=== PATIENT | female | born 1950 | race Caucasian/White ===

== ENCOUNTER 2025-04-30 15:18 | Outpatient (RCR) | payer OTHER, SELFPAY | END 2025-04-30 23:59 | disposition home or self-care (01) | LOC: RPT 15:18 | PROVIDERS: ATTENDING PHYSICIAN Internal Medicine Medical Oncology; FAMILY PHYSICIAN Nurse Practitioner Primary Care | DX: I89.0 Lymphedema, not elsewhere classified (principal); C73 Malignant neoplasm of thyroid gland; R53.0 Neoplastic (malignant) related fatigue | CPT/HCPCS: 97163; 97530 ==

== ENCOUNTER 2025-05-04 14:27 | Inpatient (IN) | payer OTHER, SELFPAY ==
[2025-05-04] VITALS (11 sets, daily range): BP systolic 90–122; BP diastolic 42–81; BMI 24.6
[2025-05-04 10:14] LABS: Hematocrit 23.2 % (37.0-47.0); Hemoglobin 7.5 g/dL (12.0-16.0); Mean Corp Hgb Conc. 32.3 g/dL (33.0-37.0); Mean Corpuscular Volume 78.6 fL (81.0-99.0); Nucleated Red Blood Cells % 0 %; Platelet Count 274 10^3/uL (130-400); Red Cell Dist. Width 17.9 % (11.5-14.5)
[2025-05-04 10:19] LABS: Urine Character Clear (Clear)
--- NOTE | 2025-05-04 10:31 | ED.GENMED ---
History of Present Illness
General
Chief Complaint: Change in Mental Status
Source: patient
Exam Limitations: altered mental status
Time Seen by Provider: 05/04/25 10:25
Nursing documentation reviewed up to this point in time: agreed with
History of Present Illness
History of Present Illness:
74-year-old female painless metastatic bone cancer presents with fever missed her dose of p.o. meds, has shingles on her back, hypotension had fluids and fentanyl by EMS lethargic here not offering much history does have some redness and warmth of
her left lower extremity
Nursing notes reviewed she has metastatic thyroid cancer
Past History
Past History
ED Past Medical History: Cancer, HTN, Hypothyroidism, Psychiatric and Other (Pulmonary emboli)
ED Past Surgical History: Orthopedic and Other (Thyroidectomy )
Social History
Tobacco: Non-smoker
Alcohol: None
Drug: None
Personal:
Living: with family
Phy Exam
Physical Exam
Physical Exam:
Physical Exam
General: Febrile chronically ill female
Neck: Dry
Heart: Tachycardic
Lungs: no acute respiratory distress. clear bilaterally
Abdomen: Distended mild diffuse tenderness
Neuro: Globally weak
Skin: no rash
Psychiatric: Cooperative
Extremities: Left greater than right lower extremity swelling warmth of the lower extremity
Sepsis
Sepsis Screening
Sepsis Assessment: Sepsis
Sepsis Screen
Sepsis Screen: Sepsis
Date: 05/07/25
Time: 05:56
Course
Orders/Labs/Results
Orders:
Orders
05/04/25 Lunch
Cholesterol Lowering
At Your Request: Non-Participating
Does patient need a safe tray?: No
Cholesterol Lowering: Sodium, 2 Gram
05/04/25 10:01
Electrocardiogram (*1) Urgent
Reason for Study: Fatigue / Weakness
EKG- Treatment ONCE
05/04/25 10:02
Comprehensive Metabolic Panel Urgent
Magnesium Urgent
Blood Culture Urgent
TAMRA Source: Blood/Venous
Specimen Description:
Date Specimen was Collected: 05/04/25
Time Specimen was Collected: 10:01
05/04/25 10:03
Complete Blood Count/With Diff Urgent
Lactic Acid Urgent
Urinalysis Reflex To Culture Urgent
Date Specimen was Collected: 05/04/25
Time Specimen was Collected: 10:01
Urine Microscopic Reflex Cult Urgent
Urine Culture Urgent
TAMRA Source: U
Specimen Description:
Date Specimen was Collected: 05/04/25
Time Specimen was Collected: 10:01
05/04/25 10:30
0.9% Sodium Chloride 1000 ml [Nss] 1,000 ml IV BOLUS
Cefepime HCl [Maxipime] 1,000 mg IV NOW STA
CR Chest Portable - 1 View Urgent
Comment:
Reason For Exam: fever
Reason Study Needs to be Portable: Patient Unstable
05/04/25 11:24
0.9% Sodium Chloride 1000 ml [Nss] 1,000 ml IV BOLUS
05/04/25 12:42
Code Status As Directed
Resuscitation Status: Do not resuscitate
Reached after discussion with pt or family/Healthcare POA: Yes
05/04/25 12:43
Activity As Directed
Activity Level: Out of Bed-Early Mobility
DNR Bracelet Application ONCE
Notify MD As Directed
Notify physician if: Bridge Admission orders placed.
Notify attending physician:
-- upon arrival to unit
OR
-- when patient is identified as an ED hold
Vital Signs As Directed
Frequency: Per unit guidelines
O2 Therapy [RESP] Routine
Titrate/Wean O2 to maintain O2 sat greater than (%): 92
05/04/25 12:44
HYDROmorphone [Dilaudid] 0.5 mg IV Q4HPRN PRN
05/04/25 13:00
Admit Patient As Directed
Co-Sign Provider:
Level of Care: Inpatient admission
Assign to:: Medical/Surgical
Physician / Group: Hospitalist
Diagnosis: Sepsis
Patient Condition: Good
Reason for Hospitalization: Sepsis
Expected length of stay greater than two midnights?: Yes
ELOS- Estimated Length of Stay in days: 3
I certify the patient meets the requirements for IP care: Yes
Notify MD As Directed
Notify physician if: Bridge Admission orders placed.
Notify attending physician:
-- upon arrival to unit
OR
-- when patient is identified as an ED hold
O2 Therapy [RESP] Routine
Titrate/Wean O2 to maintain O2 sat greater than (%): 92
05/04/25 13:02
PRN Pain Medication Management As Directed
May give lesser potent ordered pain med per pt: Yes
preference::
Protocol:: Medication orders for pain may be administered in a
manner that supports deferring to patient preference
when the pt is:
- Requesting an ordered lesser potent pain medication.
Least to most potent pain medications are defined
as: acetaminophen < NSAID < tramadol < opioids
(morphine, oxycodone, hydromorphone).
- Requesting a lesser dose of the same medication IF
ORDERED.
- Requesting a less intrusive route of administration
if both routes are prescribed by the provider (PO <
IV).
05/04/25 13:03
Pneumatic Compression Sleeves As Directed
Type: Knee high
DX Deep Vein Thrombosis Video Routine
Abnormal Lab Results
05/04/25 05/04/25
10:02 10:03
WBC 4.5 L 10^3/uL
(4.8-10.8)
RBC 2.95 L 10^6/uL
(4.20-5.40)
Hgb 7.5 L g/dL
(12.0-16.0)
Hct 23.2 L %
(37.0-47.0)
MCV 78.6 L fL
(81.0-99.0)
MCH 25.4 L pg
(27.0-31.0)
MCHC 32.3 L g/dL
(33.0-37.0)
RDW 17.9 H %
(11.5-14.5)
Absolute Lymphs (auto) 0.1 L 10^3/uL
(1.2-3.4)
Neutrophils % 92.5 H %
(42.2-75.2)
Lymphocytes % 2.0 L %
(20.5-51.1)
Glucose 106 H mg/dl
(70-99)
Calcium 7.4 L mg/dl
(8.4-10.2)
Total Protein 5.1 L g/dl
(6.3-8.2)
Albumin 2.6 L g/dl
(3.5-5.0)
Urine Nitrite (Reflex) Positive A
(Negative)
Leukocyte Esterase Rfl 1+ A
(Negative)
Urine Bacteria (Reflex) Many A
(Negative)
Urine Albumin (Reflex) 2+ A
(Neg - Trace)
05/04/25 10:03
05/04/25 10:02
Vital Signs
Initial and Last Documented VS:
Initial Vital Signs
Pulse Resp Pulse Ox
104 14 97
05/04/25 09:55 05/04/25 09:55 05/04/25 09:55
Last Documented Vital Signs
Temp Pulse Resp BP Pulse Ox
98.0 F 75 18 130/69 99
05/06/25 23:25 07/03/25 23:25 05/06/25 23:25 05/06/25 23:25 05/06/25 23:25
MDM/Problems Addressed
Differential Diagnosis Includes:
Sepsis bacteremia pneumonia UTI drug fever cancer fever
MDM/Problems Addressed:
Fever pain
Chronic conditions affecting care: Cancer
Acute Exacerbation and/or Progression of Chronic Illness: Cancer
*Radiology
Radiology exam reviewed: radiology read reviewed
*Pulse Oximetry
SaO2: 95
Oxygen Mode of Delivery: Room air
Patient hypoxic: no
*Critical Care Note
Total Time (30-74mins, 75-104mins- exclusive of procedures): 30
ED Attending Note
-
Portions of this chart may have been created with voice recognition software.� Occasional wrong word or��sound alike� substitutions may have occurred due to the inherent limitations of voice recognition software.
Discharge Plan
Departure
Patient Disposition: Admit
Date of Disposition: 05/04/25
Time of Disposition: 11:38
Admit to: IMU
Presentation/result/management discussed w/ accepting MD/DO: Hospitalist
Patient with high blood pressure during this ER visit?: No
Condition: Fair
Covid-19: Not Applicable
Discharge Problem:
Bacteremia
Interventions
Interventions:
*Risk Screen - Suicide Last Done: 05/04/25 10:09
*General Assessment Last Done: 05/04/25 10:09
*Neglect/Abuse Screening Last Done: 05/04/25 10:09
*ED- Fall Risk Assessment Last Done: 05/04/25 10:09
*ED COVID-19 Vaccine History Last Done: 05/04/25 10:09
*Nursing Disposition Last Done: 05/04/25 14:54
ED- Pulmonary Assessment Last Done: 05/04/25 10:09
ED-Psychological Assessment Last Done: 05/04/25 10:09
ED- Neurological Assessment Last Done: 05/04/25 10:09
ED- Cardiac Assessment Last Done: 05/04/25 10:09
ED Swallowing Screen Last Done: 05/04/25 10:09
Discharge Date and Time
Discharge Date/Time: 05/04/25 16:57
[2025-05-04 10:42] LABS: ALT (SGPT) 22 U/L (0-35); AST (SGOT) 24 U/L (14-36); Albumin 2.6 g/dl (3.5-5.0); Alkaline Phosphatase 110 U/L (38-126); Blood Urea Nitrogen 17 mg/dl (7-17); Calcium 7.4 mg/dl (8.4-10.2); Carbon Dioxide 28 mmol/L (22-30); Chloride 105 mmol/L (98-107); Estimated Creatinine Clearance 72 ml/min; Glucose 106 mg/dl (70-99); Magnesium 1.7 mg/dl (1.6-2.3); Potassium 4.5 mmol/L (3.5-5.1); Sodium 136 mmol/L (135-145); Total Protein 5.1 g/dl (6.3-8.2); eGFR > 60.00
[2025-05-04 11:11] LABS: Urine Squamous Cell 16-20 /LPF (Few)
[2025-05-04 11:14] LABS: Urine Red Blood Cell 0-2 /HPF (0-2)
[2025-05-04] MEDS: NSS 1000 IV ×3 (11:39→17:21)
[2025-05-04] MEDS: MAXIPIME 1000 MG IV (11:39)
--- NOTE | 2025-05-04 14:53 | EDRN ---
this RN called the receiving unit and notified them that paper report was going to be tubed up
--- NOTE | 2025-05-04 15:09 | HPS.HSE ---
Addendum entered and electronically signed by Edwardo Sanabria MD 05/04/25 21:39:
Attending Addendum-
I performed a history and physical exam of the patient and discussed his management with the resident. I reviewed the resident's note and agree with the documented findings and plan of care CC/HPI- present to ED from home secondary to CIMS fevers
and intense pain not relieved by chronic pain meds. Patient seen with present. Appears to be in significant pain unabkle to to give full answers. H/O . Deneis urinary sxs cough diarrhea. unable to find position of comfort. Full 12
point ROS reviewed and negative except as documented Exam- vitals reviewed in EMR GEN-mod distress heart RRR no MRG lungs CTA B/L Abd soft NT ND pos BS Ext 2+ pitting edema b/l Neuro AAO x 3 Back skin wound CDI healing no signs of crusting
Plan:
# Sepsis secondary to UTI
- given dose of cefepime in ED
- change to rocephin
- check blood cx, urine cx, and lactate
- give 30ml/kg IVF
-monitor closely
# Chronic Pain from malignancy with opioid tolerance
- cont aggressive pain med regimen oxy q 4 with addition of IV Dilaudid
- PDMP reviewed
- hold methadone for now
- monitor closely
# Bicytopenia (leukopenia, anemia)
- likely due to malignancy
- cont to monitor
- repeat CBC in am
# Met Thyroid Ca
- follows at [facility]
- poor prognosis recent chemo attempt 4 weeks ago and could not tolerate so stopped
- mets to bone
- patient and family wishing to discuss hospice options
- supportive care
- cont levothyroxine
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
-cont valacyclovir
-wound care
# H/O PE- cont eliquis
# Peripheral Neuropathy- cont gabapentin
# Depression/Anxiety - reviewed PDMP cont xanax and duloxetine
# HTN- cont coreg
CODE- DNR verified with POA
DVTp-eliquis
ACP
Patient consented to discuss, was woth POA/, time spent explanation of advance directives, changes in health status, patient�s health care wishes if the patient becomes unable to make health decisions, goals of care, code status, and
prognosis would like to discuss hospice options eventually- 16 minutes
Time spent coordinating care, review of plan of care with resident, personally reviewed previous records in EMR, med rec, labs, radiology, d/w nursing, family total time documented is exclusive of any additional time listed that was spent in advance
care planning discussion -�76 minutes
Original Note:
Family Physician
-
Family Physician: Chapis CHOPRA
Chief Complaint
-
Altered Mental Status
History of Present Illness
Analy is a 74 year old female with stage IV metastatic Thyroid cancer (follows with Dr. Hartman [facility], last chemo was ~14d ago, Cabozantinib, stopped due to side effects) with bone mets to spine, pelvis, and femur, chronic pain, peripheral neuropathy,
chronic bilateral lower extremity lymphedema, iatrogenic hypothyroidism, chronic shingles (active rash since 12/2024, now on chronic Valcyclovir) who was brought in by EMS for concerns of AMS. Her who is her primary critical care physician was
administering her morning medication around 8AM and found that she was unable to verbalize or take her medications so he called EMS. She was given IVF and fentanyl by EMS. She denies any fevers, chills, shortness of breath, abd pain, n/v/d, or
urinary symptoms. Her has been helping her care for her shingles infection which has not resolved, despite Valacyclovir, since it appeared in December of 2024.
In ED she was found to be febrile 103.1F, Leukopenic 4.5, with stable ANC count (4200), lactate wnl, with periodic hypotension 90s/40s. UA + for nitrites/bacteria/LE. Urine Cx pending. Blood Cx drawn. She was given 1 dose of IV Cefepime and is s/p2L
bolus NS.
Medical History
Past Medical History
Past Medical History: Reports Cancer (Stage IV Thyroid Cancer with mets to bone and abdomen) and Hypothyroidism
Additional Past Medical History:
Neuropathy
Past Surgical History: Reports Other
Additional Past Surgical History:
L Hip replacement, Thyroidectomy 2014
Social History
Tobacco: Non-smoker
Alcohol: None
Drug: None
Personal:
Living: With Family
Family History
Family History: Not pertinent
Allergies / Home Medications
Allergies reflects when Allergies were last updated in [facility].
Home Medications with original date entered in [facility]
Allergy/Medication List:
Allergies
Allergy/AdvReac Type Severity Reaction Status Date / Time
morphine Allergy Rash Verified 09/29/23 12:20
Home Medications
acetaminophen 500 mg tablet 500 mg PO Q4H Pain 05/04/25
alprazolam 0.5 mg tablet (Xanax) 1 mg PO HS Mental Health/Anxiety 05/04/25
apixaban 5 mg tablet (Eliquis) 5 mg PO BID Blood Clot Prevention/Tx 05/04/25
calcium carbonate 500 mg PO DAILY Supplement 05/04/25
carvedilol 3.125 mg tablet 3.125 mg PO BID Blood Pressure 05/04/25
cholecalciferol (vitamin D3) 10 mcg (400 unit) capsule 10 mcg PO DAILY Blood Pressure 05/04/25
duloxetine 60 mg capsule,delayed release 60 mg PO DAILY@1200 Mental Health/Anxiety 05/04/25
gabapentin 600 mg tablet 600 mg PO TID Pain 05/04/25
levothyroxine 200 mcg tablet (Synthroid) 200 mcg PO DAILY Thyroid 05/04/25
magnesium hydroxide 400 mg/5 mL oral suspension (Milk of Magnesia) 15 mg PO DAILYPRN PRN constipation 05/04/25
methadone 10 mg tablet 15 mg PO BID 05/04/25
methadone 10 mg tablet 20 mg PO HS 05/04/25
nitrofurantoin macrocrystal 50 mg capsule 50 mg PO DAILY [facility] 05/04/25
ondansetron HCl 8 mg tablet 8 mg PO Q12H N/V 05/04/25
oxycodone 20 mg tablet 20 mg PO Q4H Pain 05/04/25
pantoprazole 40 mg tablet,delayed release 40 mg PO DAILY Gastrointestinal Issue 05/04/25
valacyclovir 1 gram tablet (Valtrex) 1,000 mg PO BID [facility] 05/04/25
Review of Systems
-
History Source: Patient and Family
A 12 point ROS was completed and negative except as noted: Yes
Constitutional: Reports Fatigue and Other (Generalized Pain)
EENT: Reports No Symptoms
Respiratory: Reports No Symptoms
Cardiac: Reports No Symptoms
Abdomen/GI: Reports No Symptoms
: Reports No Symptoms
Musculoskeletal: Reports Joint Pain (Back and Pelvic Pain)
Skin: Reports Rash (Shingles)
Neurological: Reports Other (Peripheral Neuropathy BL LE)
Endocrine: Reports No Symptoms
Hematologic/Lymphatic: Reports No Symptoms
Psych: Reports No Symptoms
Physical Exam
Vital Signs
Vital Signs
Temp Pulse Resp BP Pulse Ox
103.1 F H 92 16 102/48 96
05/04/25 10:09 05/04/25 12:40 05/04/25 12:40 05/04/25 12:40 05/04/25 12:40
Physical Exam
General: Well Developed, Appears in Distress, Pain and Appears Chronically Ill
HEENT: NormoCephalic, Anicteric, Moist mucous membranes, Atraumatic, PERRLA, [place] Conjunctivae, Nose Appears Normal and Ears Appear Normal
Respiratory: Clear; No Wheezes, Rales or Rhonchi
Cardiac: S1/S2 and Regular Rhythm; No Murmur or Rub
Breast: Deferred by me
GI: Normal Bowel Sounds, Tender and Flat
Genito-urinary: Deferred by me
Musculoskeletal: No Clubbing, No Cyanosis, Edema, Left Lower Extremity and Edema, Right Lower Extremity
Skin: Warm, Dry, Rash (Shingles rash on midback) and IV/Catheter Site
Neuro: AO x 3 and Nonfocal/grossly intact
Hematologic/Lymphatic: Other (BL LE Lymphedema)
Psych: Intact Judgment/Insight
Laboratory Results
-
05/04/25 10:03
05/04/25 10:02
Laboratory Results
Lactic Acid 1.0 mmol/L (0.7-2.0) 05/04/25 10:03
Total Bilirubin 0.5 mg/dl (0.2-1.3) 05/04/25 10:02
AST 24 U/L (14-36) 05/04/25 10:02
ALT 22 U/L (0-35) 05/04/25 10:02
Alkaline Phosphatase 110 U/L (38-126) 05/04/25 10:02
Impression/Plan
-
74 year old female with a PMHX significant for stage IV metastatic Thyroid cancer (follows with Dr. Hartman [facility], last chemo was ~14d ago, Cabozantinib, stopped due to side effects) with bone mets to spine, pelvis, and femur, chronic pain, peripheral
neuropathy, chronic bilateral lower extremity lymphedema, iatrogenic hypothyroidism, chronic shingles (active rash since 12/2024, now on chronic Valcyclovir) who was brought in by EMS for concerns of AMS.
#Sepsis, secondary to UTI vs. Soft tissue infection (Shingles Rash)
- Febrile on admission to 103.1, leukopenic, tachycardic, with possible source
- lactate wnl on admission -- will repeat x1
- s/p 2L NS Bolus
- Blood cx drawn, results pending
- CXR wnl
- UA + for LE, Nitrites, bacteria -- reflex to Cx -- results pending
- s/p 1 dose IV Cefazolin -- narrowed to Ceftriaxone; await cultures
- IVF 80cc/hr maintenance
#Stage IV Metastatic Thyroid cancer
#Bone Mets
#Chronic Cancer pain
- c/w home dose Oxycodone 20mg q4
- c/w home bowel regimen for opioid induced constipation
- holding methadone
- IV Dilaudid 0.5mg q4h prn for breakthrough pain
#Anemia, likely of chronic disease
- hgb 7.5 on admission, last Hgb in our records from 2022
- no h/o bloody stools, hematuria, bruising
- check cbc in AM
#Chronic Shingles rash
- active shingles rash since December 2024
- unable to achieve full remission with Valacyclovir 10d course
- has been on daily Valacyclovir x3 weeks -- will continue
#Hypertension?
- dx of hypertension in records and home medication Carvedilol
- Patient hypotensive periodically since admission -- holding carvedilol
#H/o PE
#Hypercoagulable State (Active Stage IV Cancer)
- continue Eliquis 5mg BID
#Peripheral Neuropathy
- c/w gabapentin 600mg TID
#Iatrogenic Hypothyroidism
#s/p thyroidectomy
- c/w home dose levothyroxine 200mcg
#Anxiety
- c/w home Xanax 1mg prn/Cymbalta 60mg
GI Ppx - Pantoprazole 40mg qd
DVT PPx - pt on Eliquis
Code Status - DNR
--- NOTE | 2025-05-04 15:17 | CM ---
CM reviewed chart and met with at bedside in ED. Pt lives with , multistory home, has ramps to enter, first floor setup, has Stair[place], full BA second floor. Has adjustable beds on both first and second floor.
Needs assistance at baseline, ambulates with RW but very unsteady per her .
Started service with [facility] yesterday. HX VN and SNF
PCP: [facility] Villanue[facility] for [facility]
Pharmacy: [facility] in [place]
They are considering transition to hospice, I gave him Medicare.gov list of local hospices. He will discuss with their children this weekend.
Discharge plan: Pending ongoing medical evaluation, anticipate home with services, watch for needs
[2025-05-04] MEDS: DILAUDID 0.5 MG IV (17:21)
[2025-05-04] MEDS: ROCEPHIN 1000 MG IV (17:22)
[2025-05-04] MEDS: STERILE WATER FOR INJECTION 10 ML IV (17:22)
[2025-05-04] MEDS: TYLENOL 500 MG PO ×2 (17:30→21:56)
[2025-05-04] MEDS: ELIQUIS 5 MG PO (20:03)
[2025-05-04] MEDS: VALTREX 1000 MG PO (20:05)
[2025-05-04] MEDS: ROXICODONE 20 MG PO (20:05)
[2025-05-04] MEDS: ZOFRAN 8 MG PO (20:05)
[2025-05-04] MEDS: NEURONTIN 600 MG PO (21:56)
[2025-05-04] MEDS: XANAX 1 MG PO (21:57)
[2025-05-05] VITALS (14 sets, daily range): BP systolic 72–176; BP diastolic 30–88; BMI 24.6
[2025-05-05] MEDS: ROXICODONE PO ×2 (00:02→23:10)
[2025-05-05] MEDS: ROXICODONE 20 MG PO ×5 (03:18→20:15)
[2025-05-05] MEDS: TYLENOL 500 MG PO ×5 (03:18→17:44)
[2025-05-05] MEDS: SYNTHROID 200 MCG PO (05:56)
[2025-05-05 06:05] LABS: Hematocrit 20.8 % (37.0-47.0); Hemoglobin 6.7 g/dL (12.0-16.0); Mean Corp Hgb Conc. 32.2 g/dL (33.0-37.0); Mean Corpuscular Volume 79.1 fL (81.0-99.0); Platelet Count 257 10^3/uL (130-400); Red Cell Dist. Width 18.4 % (11.5-14.5)
[2025-05-05 06:26] LABS: Blood Urea Nitrogen 18 mg/dl (7-17); Calcium 6.6 mg/dl (8.4-10.2); Carbon Dioxide 23 mmol/L (22-30); Chloride 107 mmol/L (98-107); Estimated Creatinine Clearance 62 ml/min; Glucose 102 mg/dl (70-99); Potassium 4.4 mmol/L (3.5-5.1); Sodium 135 mmol/L (135-145); eGFR > 60.00
--- NOTE | 2025-05-05 06:33 | W.PN.UPDATE ---
Update Note
Progress Note Update
0630 HH this am 6.6 (from 7.5)
Consent obtained from , Berry @ [phone]
type and screen ordered.
will transfuse 1 unit prbc
[2025-05-05] MEDS: CALCIUM GLUCONATE 100 IV (06:59)
--- NOTE | 2025-05-05 07:45 | W.PN.HOSP.TC ---
Addendum entered and electronically signed by Edwardo Sanabria MD 05/05/25 22:49:
Attending Addendum-I saw and evaluated the patient. I reviewed the resident�s note and agree with findings and plan as documented in the resident�s note. Sub: was found to be anemic and transfused ON. complains of pain all over. tearful. denies
urainry complaints. Febrile overnight. 'I just want to be comfortbale i have cancer bone pain!' Full 12 point ROS reviewed and negative except as documented Exam- vitals reviewed in EMR GEN-mod distress heart RRR no MRG lungs CTA B/L Abd soft NT ND
pos BS Ext 2+ pitting edema b/l Neuro AAO x 3 Back skin wound CDI healing no signs of crusting
Plan:
# Sepsis secondary to UTI
-now with pos blood cx x 1- pseudomonas
-urine cx- pos for pseudomonas.
-given dose of cefepime in ED
-change from rocephin back to cefepime
- repeat blood cx
- c/s ID for eval
-monitor closely
# Chronic Pain from malignancy with opioid tolerance
- cont aggressive pain med regimen oxy q 4 with increase of prn IV Dilaudid
- PDMP reviewed
- restart methadone at home dose
- monitor closely
# Bicytopenia (leukopenia, anemia)
# Acute on chronic anemia
- likely due to malignancy
- no signs of acute blood loss
- transfused 1 u PRBC 05/05
- cont to monitor
- repeat CBC in am
# Met Thyroid Ca
- follows at [facility]
- poor prognosis recent chemo attempt 4 weeks ago and could not tolerate so stopped
- mets to bone
- patient and family wishing to discuss hospice options
- supportive care
- cont levothyroxine
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
-cont valacyclovir
-wound care
# H/O PE- cont eliquis
# Peripheral Neuropathy- cont gabapentin
# Depression/Anxiety - reviewed PDMP cont xanax and duloxetine
# HTN- cont coreg
CODE- DNR verified with POA
DVTp-eliquis
Time spent coordinating care, review of plan of care with resident, personally reviewed records in EMR, med rec, consults, notes, labs, radiology, d/w nursing and POA� 52 mins
Original Note:
Today's Communication/Plan
-
Continue with pain control
Observe blood/Urine cultures
ID Consult
Heme stool/recheck H&H
Assessment / Plan
Assessment / Plan
74 year old female with a PMHX significant for stage IV metastatic Thyroid cancer (follows with Dr. Hartman [facility], last chemo was ~14d ago, Cabozantinib, stopped due to side effects) with bone mets to spine, pelvis, and femur, chronic pain, peripheral
neuropathy, chronic bilateral lower extremity lymphedema, iatrogenic hypothyroidism, chronic shingles (active rash since 12/2024, now on chronic Valcyclovir) who was brought in by EMS for concerns of AMS.
#Sepsis, likely secondary to UTI vs. Soft tissue infection (Shingles Rash)
- Febrile on admission to 103.1, leukopenic, tachycardic, with possible source
- lactate wnl on admission -- will repeat x1
- s/p 2L NS Bolus
- Blood cx drawn, preliminary report showing GN bacteremia
- CXR wnl
- UA + for LE, Nitrites, bacteria -- reflex to Cx -- results pending
- s/p 1 dose IV Cefazolin -- narrowed to Ceftriaxone; await cultures
- IVF 80cc/hr maintenance
- ID consult for GNB in the setting of active cancer
#Acute on chronic Anemia
- hgb 7.5 on admission, last Hgb in our records from 2022
- no h/o bloody stools, hematuria, bruising
- overnight 05/05/2025 had hgb drop to 6.7, transfused x1 unit.
- Check retic count/stool heme
- More likely dilutional given no hx to suggest acute blood loss, will repeat H&H and c/t monitor.
#Stage IV Metastatic Thyroid cancer
#Bone Mets
#Chronic Cancer pain
- c/w home dose Oxycodone 20mg q4 (MME 180/d)
- c/w home bowel regimen for opioid induced constipation
- holding methadone (235 MME/d)
- Pain not currently controlled, will increase 1mg Dilaudid IV q4prn for breakthrough and add scheduled 3mg Dilaudid Q4 hr (MME 90)
- Monitor closely for hypotension in the setting of high dose opioids and sepsis
#Chronic Shingles rash
- active shingles rash since December 2024
- unable to achieve full remission with Valacyclovir 10d course
- has been on daily Valacyclovir x3 weeks -- will continue
#Hypertension?
- dx of hypertension in records and home medication Carvedilol
- Patient hypotensive periodically since admission -- holding carvedilol
#H/o PE
#Hypercoagulable State (Active Stage IV Cancer)
- holding Eliquis 05/05 for suspicion of active bleed given hgb drop vs. dilutional anemia. If afternoon H&H stable and heme stool negative, may restart Eliquis presuming no active bleed.
#Peripheral Neuropathy
- c/w gabapentin 600mg TID
#Iatrogenic Hypothyroidism
#s/p thyroidectomy
- c/w home dose levothyroxine 200mcg
#Anxiety
- c/w home Xanax 1mg prn/Cymbalta 60mg
GI Ppx - Pantoprazole 40mg qd
DVT PPx - pt on Eliquis
Code Status - DNR
Anticipated Discharge: 24 - 48 hours
Subjective/Interval History
-
Date of Service: May 05, 2025
Cancer pain and shingles pain are still significant. She has no other acute complaints in so far as fevers, chills, abd pain, urinary sx, chest pain, SOB.
Objective Data
-
Labs:
Laboratory Results
05/05/25
05:27
WBC 8.9
Hgb 6.7 L*
Hct 20.8 L*
Plt Count 257
Sodium 135
Potassium 4.4
Chloride 107
Carbon Dioxide 23
BUN 18 H
Creatinine 0.7
Glucose 102 H
Calcium 6.6 L*
Vital Signs:
Vital Signs
Temp Pulse Resp BP Pulse Ox
97.6 F 76 18 111/48 94
05/05/25 03:14 05/05/25 03:14 05/05/25 03:14 05/05/25 03:14 05/05/25 03:14
I&O
05/04/25 05/05/25 05/06/25
06:59 06:59 06:59
Intake Total 120 / 120
Balance 120 / 120
Review of Systems
-
History Source: Patient
All other systems: Reviewed and negative
Constitutional: Reports Other (Pain)
EENT: Reports No Symptoms Reported
Respiratory: Reports No Symptoms
Cardiac: Reports No Symptoms
Abdomen/GI: Reports No Symptoms
Breast: Reports No Symptoms
Genitourinary: Reports No Symptoms
Musculoskeletal: Reports No Symptoms
Skin: Reports Rash (Shingles rash)
Neuro: Reports No Symptoms
Endocrine: Reports No Symptoms
Hematologic / Lymphatic: Reports No Symptoms
Physical Exam
-
General: Pain and Appears Chronically Ill
HEENT: Normocephalic, Atraumatic, Moist Mucous Membranes, Anicteric, [place] Conjunctivae, No Ptosis, PERRLA, Nose Appears Normal and Ears Appear Normal
Respiratory: Clear to Auscultation and Non Labored Respirations; Negative Wheezes, Rales or Rhonchi
Cardiac: Regular Rhythm and S1/S2; Negative Murmur or Rub
Breast: Deferred by me
GI: Normal Bowel Sounds
Genito-urinary: Deferred by me
Musculoskeletal: No Clubbing, No Cyanosis and No Edema
Skin: Warm and Dry
Neuro: AO x 3
[2025-05-05] MEDS: DESENEX/MITRAZOL/ZEASORB 1 APPLIC TOPICAL ×2 (08:07→20:17)
[2025-05-05] MEDS: ELIQUIS 5 MG PO (08:08)
[2025-05-05] MEDS: NEURONTIN 600 MG PO ×2 (08:09→16:01)
[2025-05-05] MEDS: VALTREX 1000 MG PO ×2 (08:09→20:18)
[2025-05-05] MEDS: ZOFRAN 8 MG PO ×2 (08:09→20:18)
[2025-05-05] MEDS: MACRODANTIN 50 MG PO (08:09)
[2025-05-05] MEDS: PROTONIX 40 MG PO (08:09)
[2025-05-05] MEDS: VITAMIN D3 (cholecalciferol) 10 MCG PO (08:09)
[2025-05-05] MEDS: OSCAL CAL 500 500 MG PO (08:09)
[2025-05-05 08:39] LABS: Reticulocyte Count 0.6 % (0.4-2.8)
[2025-05-05] MEDS: DILAUDID 1 MG IV (09:59)
[2025-05-05 10:56] LABS: LDH 222 U/L (120-246)
[2025-05-05] MEDS: STERILE WATER FOR INJECTION 10 ML IV ×3 (11:25→23:09)
[2025-05-05] MEDS: CYMBALTA DELAYED RELEASE 60 MG PO (11:25)
[2025-05-05] MEDS: MAXIPIME 1000 MG IV ×3 (11:25→23:09)
--- NOTE | 2025-05-05 13:59 | WOUNDNOTE ---
SACRUM/COCCYX/BUTTOCKS
--- NOTE | 2025-05-05 14:15 | WOUNDNOTE ---
[facility] RN note: Patient admitted with sepsis, UTI.
See H&P for complete history.
PMH: Stage IV metastatic thyroid cancer with bone mets, shingles since 12/29
Wound Location and type/assessment: Patient admitted with DTI to right heel. The wound is ecchymotic and appears to be covered by blistered skin. This junior underwriter spoke to about evolving nature of DTI. unsure about when wound occurred.
Shingles rash with scant amount of drainage on old dressing. Patient had been medicated for pain prior to the time of assessment. She denied pain at Shingles site but did complain of what she called ' cancer pain' in her legs. Some MASD noted to
sacrum and buttocks.
Pressure redistribution devices in place: Static air overlay added to bed by this junior underwriter and RN, Rashaun. Turning schedule added to care plan. Patient and did not think patient could tolerate fiber filled boots, so heels were off-loaded
with pillows under calves.
Plan: No-sting barrier and silicone foam to heel, assess daily. Barrier ointment with incontinence care. Patient has several comorbidities including metastatic thyroid cancer. Wounds may worsen and new wounds may develop, even with optimal care. RN
Rachel given update. Will follow during in-patient stay. Orders confirmed with hospitalist.
[2025-05-05] MEDS: DOLOPHINE 10 MG PO (14:32)
[2025-05-05] MEDS: NSS 1000 IV (14:33)
[2025-05-05] MEDS: DOLOPHINE 5 MG PO (14:40)
--- NOTE | 2025-05-05 16:17 | CON.ID ---
Consultation
-
Date/Time Consultation Requested: 05/05/2025 0829
Date/Time Consultation Performed: 05/05/2025 1500
Requesting Provider: Dr. Orta
Performing Provider: Dr. Singh
Reason for Consultation: Bacteremia
Chief Complaint / Past History
History of Present Illness
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 History is obtained from chart review, along with patient
interview. Additional history was obtained from the patient's who is at the bedside.
The patient was initially diagnosed in 2020 and underwent approximately 2-1/2 rounds of chemotherapy. She additionally underwent 2 rounds of I-131 treatment. She additionally has had localized XRT to noted metastatic lesions. She underwent a
laminectomy last fall, and has also had a donavon placed in her femur to avert a pathologic fracture.
She recalls that she had had several episodes of urinary tract infections in late 2023 and she was evaluated by Urology and placed on suppressive antibiotics (Macrodantin). She notes on her last CAT scan she had progression of disease, and had also
developed hydronephrosis. She has been evaluated by urology at [facility] for possible stenting. She evidently started new chemotherapy approximately 1 month ago, but has elected to stop it for now.
Her reports over the past few days she has had increasing continence, and has had increasing lethargy. She was doing well until yesterday a.m. when she became somewhat nonresponsive, and at that point in time EMS was called and she was
brought emergently to the hospital. Blood cultures obtained at the time of admission are now positive for Pseudomonas, and Infectious Diseases is asked to comment upon further antimicrobial therapy.
At present, she notes ongoing generalized weakness, and she reports pain 'everywhere'. Family additionally reports that they are contemplating an eventual transition to hospice.
And other additional history, the patient reports she had a history of shingles in the mid thoracic region approximately 4�6 months ago. The area initially improved on Valtrex, but only to return again later. The has been caring for the
area with hydrogen peroxide.
Past History
Additional Past Medical History:
Metastatic follicular thyroid cancer s/p several rounds of chemotherapy.
Hypothyroidism
Neuropathy
Additional Past Surgical History:
Thyroidectomy
Left hip replacement
Femoral donavon placement
Allergy History:
morphine Allergy (Verified 09/29/23 12:20)
Rash
Medications Reviewed: Yes
Current Antibiotics:
Cefepime 1 g IV every 8 hours
Social History
Tobacco: Non-Smoker
Alcohol: None
Drug: None
Personal:
Living: With Family
Review of Systems
Vital Signs
Temp Pulse Resp BP Pulse Ox
99.8 F 97 14 176/88 95
05/05/25 16:00 05/05/25 15:51 05/05/25 15:51 05/05/25 15:51 05/05/25 15:51
Physical Exam
Physical Exam
Constitutional: Acutely Ill, Chronically Ill, Non-toxic and Cachetic
Eyes: No Conjunctival Hemorrhage and Sclera Anicteric
Cardiovascular: S1/S2; Negative S3/S4
Pulmonary: Clear; Negative Wheezes or Rales
Gastrointestinal: Non Tender and Non Distended
Wound: Other (Back wounds with appearance of unroofed prior vesicles, but appear chronic in nature. No purulence. No periwound erythema)
Neurological: Awake
Lab / Diagnostic Study Results
05/05/25 05:27
Abs Immat Gran (auto) 0.1 10^3/uL (0-0.05) H 05/05/25 05:27
Absolute Neuts (auto) 8.0 10^3/uL (1.4-6.5) H 05/05/25 05:27
Absolute Lymphs (auto) 0.3 10^3/uL (1.2-3.4) L 05/05/25 05:27
Absolute Monos (auto) 0.6 10^3/uL (0.1-0.6) 05/05/25 05:27
Absolute Basos (auto) 0.0 10^3/uL (0-0.2) 05/05/25 05:27
Immature Gran % 0.8 % (0-0.5) H 05/05/25 05:27
Neutrophils % 89.5 % (42.2-75.2) H 05/05/25 05:27
Lymphocytes % 2.8 % (20.5-51.1) L 05/05/25 05:27
Monocytes % 6.2 % (1.7-9.3) 05/05/25 05:27
Eosinophils % 0.4 % (0-6) 05/05/25 05:27
Basophils % 0.3 % (0-2) 05/05/25 05:27
Lactic Acid Cancelled 05/05/25 06:00
Ur Squamous Epith Cells 16-20 /LPF (Few) 05/04/25 10:03
Microbiology Results
Micro:
05/04/25 10:03 Urine Culture - Preliminary
Urine Pseudomonas aeruginosa
05/04/25 10:02 Blood Culture - Preliminary
Blood/Venous Pseudomonas aeruginosa
Gram Stain - Preliminary
Assessment / Plan
Pseudomonas bacteremia
Normal white count with left shift
Complicated urinary tract infection
Metastatic follicular thyroid cancer
Hypothyroidism
Recommendations:
Continue with cefepime; increase to 1 g IV every 6 hours.
Follow white count and temperature curve.
Given history of prior hydronephrosis (per ), check renal ultrasound.
Await final culture data to guide further antimicrobial therapy.
[2025-05-05 16:57] LABS: Hematocrit 32.5 % (37.0-47.0); Hemoglobin 10.9 g/dL (12.0-16.0)
--- NOTE | 2025-05-05 19:30 | PTCARENOTE ---
While rounding on patient during shift change, pt noted to have a 103.3 fever. Patient intermittently confused and very drowsy, having trouble following commands. KEYSHA Monteiro notified. IV ibuprofen ordered. Refer to MAR. Plan of care
ongoing.
[2025-05-05] MEDS: CALDOLOR 156 MG IV (20:14)
[2025-05-05] MEDS: NEURONTIN PO (22:58)
[2025-05-05] MEDS: TYLENOL PO (22:58)
[2025-05-05] MEDS: XANAX PO (22:58)
[2025-05-05] MEDS: DOLOPHINE PO (22:58)
--- NOTE | 2025-05-05 23:00 | PTCARENOTE ---
Pt temperature down to 97.8. BP low at 72/30 manually. HR of 88. Pt drowsy, holding oral meds at this time. KEYSHA Monteiro notified. 250 ml bolus ordered. Refer to MAR. Will continue to check BP q15 minutes.
[2025-05-05] MEDS: NSS 250 IV (23:06)
[2025-05-06] VITALS (24 sets, daily range): BP systolic 83–130; BP diastolic 39–79; BMI 26.5
--- NOTE | 2025-05-06 00:15 | PTCARENOTE ---
Pt BP still low in 80s/40s at end of fluid bolus. KEYSHA Monteiro notified. Fluids increased from 80 to 120 ml/hr. Plan of care ongoing.
--- NOTE | 2025-05-06 01:00 | PTCARENOTE ---
Pt BP still 80s/40s. KEYSHA Monteiro notified. Midodrine ordered. Pt arousable and alert enough to take medication. Plan of care ongoing.
[2025-05-06] MEDS: TYLENOL 500 MG PO ×6 (01:15→22:12)
[2025-05-06] MEDS: NSS 1000 IV (01:15)
[2025-05-06] MEDS: ROXICODONE PO ×2 (05:13→22:10)
[2025-05-06] MEDS: SYNTHROID 200 MCG PO (05:16)
[2025-05-06] MEDS: MAXIPIME 1000 MG IV ×4 (05:16→23:08)
[2025-05-06] MEDS: STERILE WATER FOR INJECTION 10 ML IV ×4 (05:16→23:09)
--- NOTE | 2025-05-06 06:10 | W.PN.UPDATE ---
Update Note
Progress Note Update
Pt with fever of 103.3 at the beginning of the shift- packed with ice and given q4h Tylenol and X1 dose of IV Caldolor provided- repeat temp 97.8. BP is now 72/30 HR 88- fluid challenge given and 2200 methadone, gabapentin, Xanax held. Increased IVF
from 80ml/hr to 120ml/hr BPs still soft 80s/40s. HR 60s-70. Pt drowsy but responding appropriately to verbal stimuli. BP still 80s/40s despite fluids- X1 dose of 5mg midodrine added BP 103/52 HR 72�following.Pt with little urine output overnight-
Bladder scanned for 728- order for Bladder scan and straight cath order placed. Pt BP maintaining with fluids- 90s-100s/40s-70s HR- 60s-70s.
--- NOTE | 2025-05-06 06:16 | PTCARENOTE ---
Pt noted to have decreased urine output overnight. Bladder scanned for 728 ml of urine. Pt stated not having an urge to urinate. KEYSHA Monteiro notified. Orders for bladder scan and straight cath protocol initiated. Pt straight cathed
succesfully with an output of 750 ml of dark, rg urine. Plan of care ongoing.
[2025-05-06] MEDS: VALTREX 1000 MG PO ×2 (07:28→22:10)
[2025-05-06] MEDS: DESENEX/MITRAZOL/ZEASORB 1 APPLIC TOPICAL ×2 (07:28→22:14)
[2025-05-06] MEDS: DOLOPHINE 10 MG PO ×2 (07:29→14:06)
[2025-05-06] MEDS: VITAMIN D3 (cholecalciferol) 10 MCG PO (07:29)
[2025-05-06] MEDS: PROTONIX 40 MG PO (07:29)
[2025-05-06] MEDS: OSCAL CAL 500 500 MG PO (07:29)
[2025-05-06] MEDS: NEURONTIN 600 MG PO ×3 (07:29→22:11)
[2025-05-06] MEDS: ROXICODONE 20 MG PO ×3 (07:29→15:48)
[2025-05-06] MEDS: DOLOPHINE 5 MG PO ×2 (07:30→14:07)
[2025-05-06] MEDS: MACRODANTIN 50 MG PO (07:30)
[2025-05-06] MEDS: ZOFRAN 8 MG PO ×2 (07:30→22:11)
--- NOTE | 2025-05-06 08:03 | W.PN.HOSP.TC ---
Addendum entered and electronically signed by Edwardo Sanabria MD 05/06/25 21:01:
Attending Addendum-I saw and evaluated the patient. I reviewed the resident�s note and agree with findings and plan as documented in the resident�s note. Sub: febrile overnight with hypotension- resolved with IVF and anti pyretics. pain much better
controlled this am. seen with family present. 'bone pain is the worst doc!' Full 12 point ROS reviewed and negative except as documented Exam- vitals reviewed in EMR GEN-NAD heart RRR no MRG lungs CTA B/L Abd soft NT ND pos BS Ext 2+ pitting edema
b/l Neuro AAO x 3 Back skin wound CDI healing no signs of crusting
Plan:
# Sepsis secondary to UTI
-now with pos blood cx x 3- likely pseudomonas
-repeat blood cx /
-urine cx- pos for pseudomonas sensi resulted
-given dose of cefepime in ED
-cont cefepime day #3
-appreciate ID input
-monitor closely
# DTI right heel POA
- wound care
# Opioid Use with opioid dependence
- cont aggressive pain med regimen oxy q 4 with prn IV Dilaudid
- PDMP reviewed
- cont home methadone dose
- monitor resp status closely
# Bicytopenia (leukopenia, anemia)
# Acute on chronic anemia
- likely due to malignancy
- no signs of acute blood loss
- transfused 1 u PRBC 05/05
- cont to monitor
- repeat CBC in am
# Met Thyroid Ca
- follows at [facility]
- poor prognosis recent chemo attempt 4 weeks ago and could not tolerate so stopped
- mets to bone
- patient and family wishing to discuss hospice options
- supportive care
- cont levothyroxine
# Hypocalcemia
- from poor nutritional state
- CTM
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
-cont valacyclovir
-wound care
# H/O PE- cont eliquis
# Peripheral Neuropathy- cont gabapentin
# Depression/Anxiety - reviewed PDMP cont xanax and duloxetine
# HTN- cont coreg
CODE- DNR verified with POA
DVTp-eliquis
Dispo Eventual DC home on hospice likely
Time spent coordinating care, review of plan of care with resident, personally reviewed records in EMR, med rec, consults, notes, labs, radiology, d/w nursing ID and children� 51 mins
Original Note:
Today's Communication/Plan
-
Restart Eliquis
Observe cultures
C/w Abx
C/w pain control
Assessment / Plan
Assessment / Plan
74 year old female with a PMHX significant for stage IV metastatic Thyroid cancer (follows with Dr. Hartman [facility] last chemo was ~14d ago, Cabozantinib, stopped due to side effects) with bone mets to spine, pelvis, and femur, chronic pain, peripheral
neuropathy, chronic bilateral lower extremity lymphedema, iatrogenic hypothyroidism, chronic shingles (active rash since 12/2024, now on chronic Valcyclovir) who was brought in by EMS for concerns of AMS.
#Sepsis, likely secondary to UTI vs. Soft tissue infection (Shingles Rash)
- Febrile on admission to 103.1, leukopenic, tachycardic, with possible source
- lactate wnl on admission -- will repeat x1
- CXR wnl
- s/p 2L NS Bolus
- Blood cx (05/04), showing Pseudomonas, awaiting sensitivities
- repeat Blood Cx (05/05) pending
- UA + for LE, Nitrites, bacteria -- reflex to Cx (05/04) -- growing pseudomonas
- c/w Cefepime
- IVF 80cc/hr maintenance
- ID following; appreciate recs
#Acute on chronic Anemia
- hgb 7.5 on admission, last Hgb in our records from 2022
- no h/o bloody stools, hematuria, bruising
- overnight 05/05/2025 had hgb drop to 6.7, transfused x1 unit.
- Retic count normal, heme test not resulted yet
- More likely dilutional, repeat H&H post transfusion 10.7, down to 8.9 this AM with continued fluid administration
#Stage IV Metastatic Thyroid cancer
#Bone Mets
#Chronic Cancer pain
#Chronic Opioid use with dependence
- c/w home dose Oxycodone 20mg q4 (MME 180/d)
- c/w home bowel regimen for opioid induced constipation
- back on home methadone (235 MME/d)
- Pain controlled on 1mg IV Dilaudid for Mod pain; 1.5mg IV Dilaudid for severe pain
- Monitor closely for hypotension in the setting of high dose opioids and sepsis
#Chronic Shingles rash
- active shingles rash since December 2024
- unable to achieve full remission with Valacyclovir 10d course
- has been on daily Valacyclovir x3 weeks -- will continue
#Hypertension?
- dx of hypertension in records and home medication Carvedilol
- Patient hypotensive periodically since admission -- holding carvedilol
#H/o PE
#Hypercoagulable State (Active Stage IV Cancer)
- holding Eliquis 05/05 for suspicion of active bleed given hgb drop vs. dilutional anemia.
- Hgb 8.9 this morning, no active signs of bleeding
- given high risk of clotting due to active cancer and stable hgb will restart Eliquis
#Peripheral Neuropathy
- c/w gabapentin 600mg TID
#Iatrogenic Hypothyroidism
#s/p thyroidectomy
- c/w home dose levothyroxine 200mcg
#Anxiety
- c/w home Xanax 1mg prn/Cymbalta 60mg
#Right Heel DTI - POA, c/w wound care
GI Ppx - Pantoprazole 40mg qd
DVT PPx - pt on Eliquis
Code Status - DNR
Anticipated Discharge: Within 24 hours
Subjective/Interval History
-
Date of Service: May 06, 2025
Feeling better this morning. No subjective fevers, just feeling cold as is usual for her. No chills. Pain much better controlled compared to yesterday.
Objective Data
-
Labs:
Laboratory Results
05/06/25
07:16
WBC Pending
Hgb Pending
Hct Pending
Plt Count Pending
Sodium Pending
Potassium Pending
Chloride Pending
Carbon Dioxide Pending
BUN Pending
Creatinine Pending
Glucose Pending
Calcium Pending
Vital Signs:
Vital Signs
Temp Pulse Resp BP Pulse Ox
97.6 F 61 16 101/51 93
05/06/25 07:26 05/06/25 07:26 05/06/25 07:26 05/06/25 07:26 05/06/25 07:26
I&O
05/05/25 05/06/25 05/07/25
06:59 06:59 06:59
Intake Total 120 / 120 1530 / 1530
Output Total 750 / 750
Balance 120 / 120 780 / 780
Review of Systems
-
History Source: Patient
All other systems: Reviewed and negative
Constitutional: Reports Chills
EENT: Reports No Symptoms Reported
Respiratory: Reports No Symptoms
Cardiac: Reports No Symptoms
Abdomen/GI: Reports No Symptoms
Breast: Reports No Symptoms
Genitourinary: Reports No Symptoms
Musculoskeletal: Reports No Symptoms
Skin: Reports No Symptoms
Neuro: Reports No Symptoms
Endocrine: Reports No Symptoms
Hematologic / Lymphatic: Reports No Symptoms
Physical Exam
-
General: No Apparent Distress, Conversant and Appears Chronically Ill
HEENT: Normocephalic, Atraumatic, Moist Mucous Membranes, Anicteric, [place] Conjunctivae, PERRLA, Nose Appears Normal and Ears Appear Normal
Respiratory: Clear to Auscultation; Negative Wheezes, Rales or Rhonchi
Cardiac: Regular Rhythm and S1/S2; Negative Murmur or Rub
Breast: Deferred by me
GI: Normal Bowel Sounds and Flat
Genito-urinary: No Costovertebral Tender
Musculoskeletal: No Clubbing, No Cyanosis and No Edema
Skin: Warm, Dry, Decubitus Ulcers (R heel ) and IV Access / Catheter Site
Neuro: AO x 3
[2025-05-06 08:27] LABS: Hematocrit 24.8 % (37.0-47.0); Hemoglobin 8.1 g/dL (12.0-16.0); Mean Corp Hgb Conc. 32.7 g/dL (33.0-37.0); Mean Corpuscular Volume 78.0 fL (81.0-99.0); Nucleated Red Blood Cells % 0 %; Platelet Count 270 10^3/uL (130-400); Red Cell Dist. Width 17.9 % (11.5-14.5)
--- NOTE | 2025-05-06 08:38 | PN.CDI ---
CDI
- -
CDI:
Physician Documentation Request
Admit Date: 05/04/25 14:27
Dear Doctor,
Please review the following and provide your response in the progress notes.
Clinical Indicators:
- 7/ PN 'Chronic Pain from malignancy with opioid tolerance'
- 'cont aggressive pain med regimen oxy q 4 with increase of prn IV Dilaudid '
- 05/04 H&P home medications methadone, oxycodone
If possible, please provide further specificity opioid tolerance:
Opioid use with dependence
Opioid dependence
Other (please specify)
Use of terms such as suspected, likely, concern for, or probable (associated with a specific diagnosis that is being evaluated, monitored, or treated as if it exists) are acceptable and can be coded in the inpatient setting, when documented at the
time of discharge.
Thank you,
Heidi Ball RN
CDI Specialist
Please use your independent medical judgment in providing your response.
--- NOTE | 2025-05-06 08:44 | PN.CDI ---
CDI
- -
CDI:
Physician Documentation Request
Admit Date: 05/04/25 14:27
Dear Doctor,
Please review the following and provide your response in the progress notes.
Clinical Indicators:
- RN skin assessments indicate DTI to right heel, POA
Physician documentation of the type and location of wounds is required for compliant documentation. Based on the above clinical findings and your assessment, please provide the following in your progress note:
1. Location of the ulcer/wound, including laterality.
2. Type (etiology) of ulcer/wound:
- Diabetic ulcer
- Arterial (ischemic) ulcer
- Traumatic wound
- Venous stasis ulcer
- Pressure (decubitus) ulcer
- Non-healing surgical wound
- Other
- Unable to determine
Use of terms such as suspected, likely, concern for, or probable (associated with a specific diagnosis that is being evaluated, monitored, or treated as if it exists) are acceptable and can be coded in the inpatient setting, when documented at the
time of discharge.
Thank you,
Heidi Ball RN
CDI Specialist
Please use your independent medical judgment in providing your response.
*Source: National Pressure Ulcer Advisory Panel (NPUAP)
[2025-05-06 09:00] LABS: Blood Urea Nitrogen 23 mg/dl (7-17); Calcium 7.0 mg/dl (8.4-10.2); Carbon Dioxide 20 mmol/L (22-30); Chloride 110 mmol/L (98-107); Estimated Creatinine Clearance 54 ml/min; Glucose 109 mg/dl (70-99); Potassium 4.6 mmol/L (3.5-5.1); Sodium 134 mmol/L (135-145); eGFR > 60.00
[2025-05-06] MEDS: ELIQUIS 5 MG PO ×2 (10:01→22:12)
[2025-05-06] MEDS: CYMBALTA DELAYED RELEASE 60 MG PO (11:49)
--- NOTE | 2025-05-06 14:18 | W.PN.ID1 ---
Date of Service
Date of Service: May 06, 2025
Today's Communication
Continue cefepime.
Assessment / Plan
Pseudomonas bacteremia
Normal white count with left shift
Complicated urinary tract infection
Metastatic follicular thyroid cancer
Hypothyroidism
Recommendations:
Continue with cefepime 1 g IV every 6 hours.
Follow white count and temperature curve.
Given history of prior hydronephrosis (per ), check renal ultrasound.
Chief Complaint
-: Bacteremia
Subjective / Review of Systems
Patient seen and examined. Reports feeling markedly improved today.
Vital Signs / Physical Exam
Vital Signs
Vital Signs
Temp Pulse Resp BP Pulse Ox
97.6 F 61 16 101/51 93
05/06/25 07:26 05/06/25 07:26 05/06/25 07:26 05/06/25 07:26 05/06/25 07:26
Physical Exam
Constitutional: Acutely Ill and Chronically Ill
Eyes: Sclera Anicteric
Pulmonary: Non Labored
Gastrointestinal: Non Distended
Neurological: Awake and Alert
Psychological: Calm
Objective Data
Lab Data
Lab Results
05/06/25 07:16
05/06/25 07:16
Estimated Creat Clear 54 ml/min 05/06/25 07:16
Lactic Acid Cancelled 05/05/25 06:00
Total Bilirubin 0.5 mg/dl (0.2-1.3) 05/04/25 10:02
AST 24 U/L (14-36) 05/04/25 10:02
ALT 22 U/L (0-35) 05/04/25 10:02
Alkaline Phosphatase 110 U/L (38-126) 05/04/25 10:02
Most recent labs reviewed.
Micro Results:
05/05/25 17:27 Blood Culture - Preliminary
Blood/Venous Positive culture in progress
Gram Stain - Preliminary
05/05/25 16:40 Blood Culture - Preliminary
Blood/Venous Positive culture in progress
Gram Stain - Preliminary
05/04/25 10:02 Blood Culture - Preliminary
Blood/Venous Pseudomonas aeruginosa
Gram Stain - Preliminary
05/04/25 10:03 Urine Culture - Final
Urine Pseudomonas aeruginosa
05/06/25 05:34 MRSA Screen - Pending
Nose
Urine Culture Final 05/06/25-0859
CC: Greater than 100,000 CFU/ML Pseudomonas aeruginosa
1. Pseudomonas aeruginosa
M.I.C. RX
--------- ---
Aztreonam <=4 S
Cefepime <=2 S
Ceftazidime 4 S
Ciprofloxacin <=0.25 S
Meropenem <=1 S
Piperacillin/Tazobactam <=8 S
Tobramycin <=2 S
Care Review
Plan reviewed with: Physician (Hospital service)
[2025-05-06] MEDS: DILAUDID 1.5 MG IV (21:51)
[2025-05-06] MEDS: XANAX 1 MG PO (23:09)
[2025-05-06] MEDS: DOLOPHINE 20 MG PO (23:10)
[2025-05-07] MEDS: ROXICODONE 20 MG PO ×7 (00:22→23:55)
[2025-05-07] MEDS: TYLENOL PO (04:53)
[2025-05-07] MEDS: SYNTHROID 200 MCG PO (05:52)
[2025-05-07] MEDS: STERILE WATER FOR INJECTION 10 ML IV ×4 (05:52→23:55)
[2025-05-07] MEDS: TYLENOL 500 MG PO ×5 (05:52→22:00)
[2025-05-07] MEDS: MAXIPIME 1000 MG IV ×4 (05:52→23:56)
[2025-05-07 06:18] LABS: Hematocrit 30.3 % (37.0-47.0); Hemoglobin 10.0 g/dL (12.0-16.0); Mean Corp Hgb Conc. 33.0 g/dL (33.0-37.0); Mean Corpuscular Volume 78.9 fL (81.0-99.0); Nucleated Red Blood Cells % 0 %; Platelet Count 356 10^3/uL (130-400); Red Cell Dist. Width 18.6 % (11.5-14.5)
[2025-05-07 06:27] LABS: Blood Urea Nitrogen 24 mg/dl (7-17); Calcium 7.9 mg/dl (8.4-10.2); Carbon Dioxide 23 mmol/L (22-30); Chloride 109 mmol/L (98-107); Estimated Creatinine Clearance 54 ml/min; Glucose 88 mg/dl (70-99); Potassium 4.4 mmol/L (3.5-5.1); Sodium 137 mmol/L (135-145); eGFR > 60.00
[2025-05-07 07:00] VITALS: BP 111/62
--- NOTE | 2025-05-07 08:29 | W.PN.HOSP.TC ---
Addendum entered and electronically signed by Edwardo Sanabria MD 05/07/25 21:52:
Attending Addendum-I saw and evaluated the patient. I reviewed the resident�s note and agree with findings and plan as documented in the resident�s note. Sub: appears groggy and repeating questions over and over again. states pain is controlled.
found to be retaining urine this am and hernandez placed. Full 12 point ROS reviewed and negative except as documented-limited by MS Exam- vitals reviewed in EMR GEN-NAD heart RRR no MRG lungs CTA B/L Abd soft NT ND pos BS Ext 2+ pitting edema b/l
Neuro AAO x 2 Back skin wound CDI healing no signs of crusting
Plan:
# Sepsis secondary to pseudomonas UTI with bacteremia
-pos blood cx x 3-pseudomonas
-repeat blood cx /-
-urine cx- pos for pseudomonas sensi resulted
-given dose of cefepime in ED
-cont cefepime day #4
-appreciate ID input
-monitor closely
# Urinary Retention due to opioids
-hernandez placed
-check renal US
-TOV soon when more ambulatory
# DTI right heel POA
- wound care
# Opioid Use with opioid dependence
- cont aggressive pain med regimen oxy q 4 with prn IV Dilaudid
- PDMP reviewed
- cont home methadone dose
- monitor resp status closely
# Bicytopenia (leukopenia, anemia)
# Acute on chronic anemia
- due to malignancy
- no signs of acute blood loss
- transfused 1 u PRBC 05/05
- cont to monitor
- repeat CBC in am
# Met Thyroid Ca
- follows at [facility]
- poor prognosis recent chemo attempt 4 weeks ago and could not tolerate so stopped
- mets to bone
- c/s hospice for eval
- supportive care
- cont levothyroxine
# Hypocalcemia
- from poor nutritional state
- improving
- CTM
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
-DC valacyclovir
-wound care
# H/O PE- cont eliquis
# Peripheral Neuropathy- cont gabapentin
# Depression/Anxiety - reviewed PDMP cont xanax and duloxetine
# HTN- cont coreg
CODE- DNR verified with POA
DVTp-eliquis
Dispo Eventual DC home on hospice likely
Time spent coordinating care, review of plan of care with resident, personally reviewed records in EMR, med rec, consults, notes, labs, radiology, d/w nursing and POA� 52 mins
Original Note:
Today's Communication/Plan
-
c/w IV Abx
Repeat Blood cultures
Check ammonia
Assessment / Plan
Assessment / Plan
74 year old female with a PMHX significant for stage IV metastatic Thyroid cancer (follows with Dr. Hartman [facility], last chemo was ~14d ago, Cabozantinib, stopped due to side effects) with bone mets to spine, pelvis, and femur, chronic pain, peripheral
neuropathy, chronic bilateral lower extremity lymphedema, iatrogenic hypothyroidism, chronic shingles (active rash since 12/2024, now on chronic Valcyclovir) who was brought in by EMS for concerns of AMS.
#AMS
- patient oriented today only to person, otherwise confused
- no other complaints -- AM chemistry unremarkable and vitals stable this morning
- arousable, able to follow simple commands - grossly intact neurologically
- will check ammonia, may consider CT head if symptoms do not resolve or focal neurological deficits develop
#Sepsis, likely secondary to UTI vs. Soft tissue infection (Shingles Rash)
- Febrile on admission to 103.1, leukopenic, tachycardic, with possible source
- lactate wnl on admission -- will repeat x1
- CXR wnl
- s/p 2L NS Bolus
- Blood cx (05/04), showing Pseudomonas, awaiting sensitivities
- repeat Blood Cx (05/05) pos GNB 12/06
- UA + for LE, Nitrites, bacteria -- reflex to Cx (05/04) -- growing pseudomonas
- c/w Cefepime
- IVF 80cc/hr maintenance
- repeat BCx drawn today -- results pending
- ID following; appreciate recs
#Acute on chronic Anemia
- hgb 7.5 on admission, last Hgb in our records from 2022
- no h/o bloody stools, hematuria, bruising
- overnight 05/05/2025 had hgb drop to 6.7, transfused x1 unit
- Retic count normal, heme test not resulted yet
- hgb stable today - c/t monitor
#Stage IV Metastatic Thyroid cancer
#Bone Mets
#Chronic Cancer pain
#Chronic Opioid use with dependence
- c/w home dose Oxycodone 20mg q4 (MME 180/d)
- c/w home bowel regimen for opioid induced constipation
- back on home methadone (235 MME/d)
- Pain controlled on 1mg IV Dilaudid for Mod pain; 1.5mg IV Dilaudid for severe pain
- Monitor closely for hypotension in the setting of high dose opioids and sepsis
#Chronic Shingles rash
- active shingles rash since December 2024
- unable to achieve full remission with Valacyclovir 10d course
- has been on daily Valacyclovir x3 weeks -- will continue
#Hypertension?
- dx of hypertension in records and home medication Carvedilol
- Patient hypotensive periodically since admission -- holding carvedilol
#H/o PE
#Hypercoagulable State (Active Stage IV Cancer)
- holding Eliquis 05/05 for suspicion of active bleed given hgb drop vs. dilutional anemia.
- Hgb 8.9 this morning, no active signs of bleeding
- given high risk of clotting due to active cancer and stable hgb will restart Eliquis
#Peripheral Neuropathy
- c/w gabapentin 600mg TID
#Iatrogenic Hypothyroidism
#s/p thyroidectomy
- c/w home dose levothyroxine 200mcg
#Anxiety
- c/w home Xanax 1mg prn/Cymbalta 60mg
#Right Heel DTI - POA, c/w wound care
GI Ppx - Pantoprazole 40mg qd
DVT PPx - pt on Eliquis
Code Status - DNR
Anticipated Discharge: 24 - 48 hours
Subjective/Interval History
-
Date of Service: May 07, 2025
Does not seem well this morning. Has no specific complaints but is very somnolent and confused. Overnight there were reports of similar confusion.
Objective Data
-
Labs:
Laboratory Results
05/07/25
05:49
WBC 8.2
Hgb 10.0 L D
Hct 30.3 L
Plt Count 356 D
Sodium 137
Potassium 4.4
Chloride 109 H
Carbon Dioxide 23
BUN 24 H
Creatinine 0.8
Glucose 88
Calcium 7.9 L
Vital Signs:
Vital Signs
Temp Pulse Resp BP Pulse Ox
98.0 F 75 18 130/69 99
05/06/25 23:25 05/06/25 23:25 05/06/25 23:25 05/06/25 23:25 05/06/25 23:25
I&O
05/06/25 05/07/25 05/08/25
06:59 06:59 06:59
Intake Total 1530 / 1530 600 / 600
Output Total 750 / 750 1450 / 1450
Balance 780 / 780 -850 / -850
Review of Systems
-
Unable to obtain full review of systems at this time due to: Other (Confusion)
History Source: Patient
Constitutional: Reports No Symptoms
EENT: Reports No Symptoms Reported
Respiratory: Reports No Symptoms
Cardiac: Reports No Symptoms
Abdomen/GI: Reports No Symptoms
Musculoskeletal: Reports No Symptoms
Neuro: Reports No Symptoms
Physical Exam
-
General: Well Developed, Well Nourished and Appears Chronically Ill
HEENT: Normocephalic, Atraumatic, Moist Mucous Membranes, No Ptosis, PERRLA, Nose Appears Normal and Ears Appear Normal
Respiratory: Clear to Auscultation (anteriorly) and Non Labored Respirations; Negative Wheezes, Rales or Rhonchi
Cardiac: Regular Rhythm and S1/S2; Negative Murmur or Rub
Breast: Deferred by me
GI: Nondistended and Normal Bowel Sounds
Genito-urinary: No Costovertebral Tender
Musculoskeletal: No Clubbing, No Cyanosis and No Edema
Skin: Warm, Dry and IV Access / Catheter Site
Neuro: Awake, Alert, Oriented (oriented to person only), Nonfocal/Grossly Intact, Central Nerve's Intact, No Sensory Deficits and Other
Psych: Confused
[2025-05-07] MEDS: NEURONTIN 600 MG PO ×3 (08:37→21:59)
[2025-05-07] MEDS: DESENEX/MITRAZOL/ZEASORB 1 APPLIC TOPICAL ×2 (08:37→19:48)
[2025-05-07] MEDS: PROTONIX 40 MG PO (08:37)
[2025-05-07] MEDS: MACRODANTIN 50 MG PO (08:38)
[2025-05-07] MEDS: VITAMIN D3 (cholecalciferol) 10 MCG PO (08:38)
[2025-05-07] MEDS: DOLOPHINE 5 MG PO ×2 (08:38→14:08)
[2025-05-07] MEDS: DOLOPHINE 10 MG PO ×2 (08:38→14:09)
[2025-05-07] MEDS: OSCAL CAL 500 500 MG PO (08:38)
[2025-05-07] MEDS: VALTREX 1000 MG PO ×2 (08:38→19:48)
[2025-05-07] MEDS: ELIQUIS 5 MG PO ×2 (08:38→19:48)
[2025-05-07] MEDS: ZOFRAN 8 MG PO ×2 (08:38→19:48)
[2025-05-07 09:25] LABS: Ammonia < 9 umol/L (9-30)
[2025-05-07] MEDS: CYMBALTA DELAYED RELEASE 60 MG PO (11:00)
[2025-05-07] MEDS: NSS 1000 IV (14:11)
[2025-05-07 15:00] VITALS: BP 102/59
--- NOTE | 2025-05-07 16:29 | HOSPNOTE ---
Hospice referral received. Patient does not meet inpatient hospice at this time after reviewing records. Spoke to patients spouse, he is considering hospice. He is not sure if patient will make it out of the hospital at this time. He would like to
see how patient does this weekend and would like to speak with this hospice nurse on Saturday mid morning. Updated CM and Attending. Will follow patient over the weekend and reviewed to reach out to this nurse if patient requires hospice before
conversation on Saturday with spouse. CM and Attending updated and in agreement.
[2025-05-07 21:55] VITALS: BP 107/53
[2025-05-07] MEDS: DOLOPHINE 20 MG PO (21:59)
[2025-05-07] MEDS: XANAX 1 MG PO (22:00)
[2025-05-07 23:23] VITALS: BP 104/55
[2025-05-08] MEDS: TYLENOL PO ×2 (02:51→17:02)
[2025-05-08] MEDS: ROXICODONE 20 MG PO ×6 (04:22→23:48)
[2025-05-08] MEDS: STERILE WATER FOR INJECTION 10 ML IV ×2 (05:49→11:13)
[2025-05-08] MEDS: TYLENOL 500 MG PO ×4 (05:49→22:06)
[2025-05-08] MEDS: MAXIPIME 1000 MG IV ×2 (05:49→11:14)
[2025-05-08] MEDS: SYNTHROID 200 MCG PO (05:49)
[2025-05-08] MEDS: NSS 1000 IV ×2 (05:49→22:06)
[2025-05-08 06:14] VITALS: BMI 26.9
[2025-05-08 07:00] VITALS: BP 121/65
[2025-05-08] MEDS: VALTREX 1000 MG PO ×2 (08:06→20:07)
[2025-05-08] MEDS: NEURONTIN 600 MG PO ×3 (08:06→22:05)
[2025-05-08] MEDS: PROTONIX 40 MG PO (08:06)
[2025-05-08] MEDS: OSCAL CAL 500 500 MG PO (08:06)
[2025-05-08] MEDS: VITAMIN D3 (cholecalciferol) 10 MCG PO (08:06)
[2025-05-08] MEDS: ZOFRAN 8 MG PO ×2 (08:06→20:07)
[2025-05-08] MEDS: DOLOPHINE 10 MG PO ×2 (08:06→15:41)
[2025-05-08] MEDS: DESENEX/MITRAZOL/ZEASORB 1 APPLIC TOPICAL ×2 (08:07→20:07)
[2025-05-08] MEDS: ELIQUIS 5 MG PO ×2 (08:07→20:07)
[2025-05-08] MEDS: DOLOPHINE 5 MG PO ×2 (08:07→15:41)
[2025-05-08] MEDS: MACRODANTIN 50 MG PO (08:07)
[2025-05-08 09:30] LABS: Hematocrit 29.3 % (37.0-47.0); Hemoglobin 9.6 g/dL (12.0-16.0); Mean Corp Hgb Conc. 32.8 g/dL (33.0-37.0); Mean Corpuscular Volume 80.3 fL (81.0-99.0); Nucleated Red Blood Cells % 0 %; Platelet Count 334 10^3/uL (130-400); Red Cell Dist. Width 19.2 % (11.5-14.5)
[2025-05-08 09:52] LABS: ALT (SGPT) 14 U/L (0-35); AST (SGOT) 13 U/L (14-36); Albumin 2.4 g/dl (3.5-5.0); Alkaline Phosphatase 153 U/L (38-126); Blood Urea Nitrogen 21 mg/dl (7-17); Calcium 7.8 mg/dl (8.4-10.2); Carbon Dioxide 24 mmol/L (22-30); Chloride 110 mmol/L (98-107); Estimated Creatinine Clearance 62 ml/min; Glucose 78 mg/dl (70-99); Potassium 4.9 mmol/L (3.5-5.1); Sodium 136 mmol/L (135-145); Total Protein 4.9 g/dl (6.3-8.2); eGFR > 60.00
[2025-05-08] MEDS: CYMBALTA DELAYED RELEASE 60 MG PO (11:13)
--- NOTE | 2025-05-08 11:31 | HOSPNOTE ---
Addendum entered by Franca Brady RN 05/08/25 16:22:
Notified by Attending that patients family is ready to proceed with hospice. Patient at this time does not meet inpatient hospice criteria. Patient is eligible at this time for home hospice. Spoke to patients spouse who reports he and the family are
in agreement with hospice and feel that doing anything extra at this point is just prolonging the inevitable. Per spouse- all antibiotics to be discontinued- Attending updated. Attending to make patient comfort level of care until patient is able to
return home on hospice services, anticipated Saturday per spouse request to get dogs and visiting angels arranged on Saturday. CM, Attending and Primary Nurse updated. Will follow daily and assess for gip level of care until patient can return home on
Saturday with hospice services. Spouse understands specific criteria for inpatient hospice and understands patient does not meet that at this time and at this time our recommendation is home with hospice on Saturday. No equipment is needed per spouse
as well.
Original Note:
Hospice continues to follow and be available. Per conversation with spouse yesterday afternoon, he wished to see how patient does over the weekend and follow up with him Saturday to further discuss hospice. Please notify hospice if hospice is needed
before conversation on Saturday with spouse.
--- NOTE | 2025-05-08 11:54 | W.PN.HOSP.TC ---
Addendum entered and electronically signed by Vamsi Wilcox MD 05/08/25 16:22:
Patient spouse has decided to transition to hospice. They also want antibiotics to be stopped. Hospice discussed with family plan to transfer to home hospice early next week.
Original Note:
Today's Communication/Plan
-
Long-term prognosis guarded
Continue IV antibiotic
Continue with home opiate regimen
Hold IV pain meds
Assessment / Plan
Assessment / Plan
74 year old female with a PMHX significant for stage IV metastatic Thyroid cancer (follows with Dr. Hartman [facility], last chemo was ~14d ago, Cabozantinib, stopped due to side effects) with bone mets to spine, pelvis, and femur, chronic pain, peripheral
neuropathy, chronic bilateral lower extremity lymphedema, iatrogenic hypothyroidism, chronic shingles (active rash since 12/2024, now on chronic Valcyclovir) who was brought in by EMS for concerns of AMS.
#AMS
-Ammonia level was found to be negative. Patient remains confused. Mentation waxing and waning. Unclear if related to delirium, pain medication versus cefepime induced encephalopathy low likelihood
- This morning patient was awake enough to states she was hungry and wanted to get out of bed. If mentation continues to remain waxing and waning will need brain imaging. Low threshold to check CAT scan
#Sepsis, likely secondary to UTI vs. Soft tissue infection (Shingles Rash)
- Febrile on admission to 103.1, leukopenic, tachycardic, with possible source
- lactate wnl on admission
- CXR wnl
- s/p 2L NS Bolus
- Blood cx (05/04), showing Pseudomonas, awaiting sensitivities
- repeat Blood Cx (05/05) pos GNB 12/06
- UA + for LE, Nitrites, bacteria -- reflex to Cx (05/04) -- growing pseudomonas
- c/w Cefepime
- IVF 80cc/hr maintenance
- repeat BCx 05/07 remains negative
-Ultrasound renal with hydronephrosis-probably chronic.
- ID following; appreciate recs
#Acute on chronic Anemia
- hgb 7.5 on admission, last Hgb in our records from 2022
- no h/o bloody stools, hematuria, bruising
- overnight 05/05/2025 had hgb drop to 6.7, transfused x1 unit
- Retic count normal, heme test not resulted yet
- hgb stable at 9.6
#Stage IV Metastatic Thyroid cancer
#Bone Mets
#Chronic Cancer pain
#Chronic Opioid use with dependence
- c/w home dose Oxycodone 20mg q4
- c/w home bowel regimen for opioid induced constipation
- back on home methadone (235 MME/d)
- Pain controlled on 1mg IV Dilaudid for Mod pain; 1.5mg IV Dilaudid for severe pain-not required extensive IV medication. Will place on hold.
#Chronic Shingles rash
- active shingles rash since December 2024
- unable to achieve full remission with Valacyclovir 10d course
- has been on daily Valacyclovir x3 weeks -- will continue
#H/o PE
#Hypercoagulable State (Active Stage IV Cancer)
- Continue Eliquis
#Peripheral Neuropathy
- c/w gabapentin 600mg TID
#Iatrogenic Hypothyroidism
#s/p thyroidectomy
- c/w home dose levothyroxine 200mcg
#Anxiety
- c/w home Xanax 1mg prn/Cymbalta 60mg
#Right Heel DTI - POA, c/w wound care
GI Ppx - Pantoprazole 40mg qd
DVT PPx - pt on Eliquis
Code Status - DNR
Anticipated Discharge: > 48 hours
Subjective/Interval History
-
Date of Service: May 08, 2025
This morning patient says she is hungry
Agreed to get out of bed
Objective Data
-
Labs:
Laboratory Results
05/08/25
06:54
WBC 5.8
Hgb 9.6 L
Hct 29.3 L
Plt Count 334
Sodium 136
Potassium 4.9
Chloride 110 H
Carbon Dioxide 24
BUN 21 H
Creatinine 0.7
Glucose 78
Calcium 7.8 L
Total Bilirubin 0.5
AST 13 L
ALT 14
Alkaline Phosphatase 153 H
Vital Signs:
Vital Signs
Temp Pulse Resp BP Pulse Ox
98.2 F 82 17 121/65 92
05/08/25 07:00 05/08/25 07:00 05/08/25 07:00 05/08/25 07:00 05/08/25 07:00
I&O
05/07/25 05/08/25 05/09/25
06:59 06:59 06:59
Intake Total 600 / 600 420 / 420
Output Total 1450 / 1450 2500 / 2500
Balance -850 / -850 -2079 / -2079
Physical Exam
-
General: Well Developed, Well Nourished and Appears Chronically Ill
HEENT: Normocephalic, Atraumatic, Moist Mucous Membranes, Nose Appears Normal and Ears Appear Normal
Respiratory: Clear to Auscultation (anteriorly) and Non Labored Respirations; Negative Wheezes, Rales or Rhonchi
Cardiac: Regular Rhythm and S1/S2; Negative Murmur or Rub
Breast: Deferred by me
GI: Nondistended and Normal Bowel Sounds
Genito-urinary: No Costovertebral Tender
Musculoskeletal: No Clubbing, No Cyanosis and No Edema
Skin: Warm, Dry and IV Access / Catheter Site
Neuro: Awake, Alert, Nonfocal/Grossly Intact and Central Nerve's Intact
Psych: Confused
Data Reviewed
-
Total Time Spent with Patient (in minutes): 55
--- NOTE | 2025-05-08 12:04 | W.PN.ID1 ---
Date of Service
Date of Service: May 08, 2025
Today's Communication
Continue antibiotics.
Assessment / Plan
Pseudomonas bacteremia
Normal white count with left shift
Complicated urinary tract infection
Metastatic follicular thyroid cancer
Hypothyroidism
Recommendations:
Continue with cefepime 1 g IV every 6 hours.
Follow white count and temperature curve.
Chief Complaint
-: Bacteremia
Subjective / Review of Systems
Review of Systems: No Fever
Vital Signs / Physical Exam
Vital Signs
Vital Signs
Temp Pulse Resp BP Pulse Ox
98.2 F 82 17 121/65 92
05/08/25 07:00 05/08/25 07:00 05/08/25 07:00 05/08/25 07:00 05/08/25 07:00
Physical Exam
Constitutional: Comfortable, Acutely Ill and Chronically Ill
Eyes: Sclera Anicteric
Cardiovascular: S1/S2; Negative S3/S4
Pulmonary: Non Labored
Gastrointestinal: Non Distended
Extremities: Edema; Negative Cyanosis or Erythema
Neurological: Awake and Alert
Psychological: Calm
Objective Data
Lab Data
Lab Results
05/08/25 06:54
05/08/25 06:54
Estimated Creat Clear 62 ml/min 05/08/25 06:54
Lactic Acid Cancelled 05/05/25 06:00
Total Bilirubin 0.5 mg/dl (0.2-1.3) 05/08/25 06:54
AST 13 U/L (14-36) L 05/08/25 06:54
ALT 14 U/L (0-35) 05/08/25 06:54
Alkaline Phosphatase 153 U/L (38-126) H 05/08/25 06:54
Most recent labs reviewed.
Micro Results:
05/07/25 08:59 Blood Culture - Preliminary
Blood/Venous No Growth in 24 hours- Final report to follow
05/07/25 07:43 Blood Culture - Preliminary
Blood/Venous No Growth in 24 hours- Final report to follow
05/05/25 17:27 Blood Culture - Preliminary
Blood/Venous Pseudomonas aeruginosa
Gram Stain - Preliminary
05/05/25 16:40 Blood Culture - Preliminary
Blood/Venous Pseudomonas aeruginosa
Gram Stain - Preliminary
05/04/25 10:02 Blood Culture - Preliminary
Blood/Venous Pseudomonas aeruginosa
Gram Stain - Preliminary
05/06/25 05:34 MRSA Screen - Final
Nose No Methicillin Resistant Staphylococcus aureus isolated.
05/04/25 10:03 Urine Culture - Final
Urine Pseudomonas aeruginosa
Urine Culture Final 05/06/25-0859
CC: Greater than 100,000 CFU/ML Pseudomonas aeruginosa
1. Pseudomonas aeruginosa
M.I.C. RX
--------- ---
Aztreonam <=4 S
Cefepime <=2 S
Ceftazidime 4 S
Ciprofloxacin <=0.25 S
Meropenem <=1 S
Piperacillin/Tazobactam <=8 S
Tobramycin <=2 S
Imaging:
05/07/2025 Renal ultrasound: Findings concerning for severe right-sided hydronephrosis as prior CT in 2022 did not demonstrate parapelvic cysts. Mild left-sided hydronephrosis which improved post void. Consider further evaluation with dedicated CT
abdomen pelvis. Debris within the urinary bladder which can be seen with cystitis.
Care Review
Plan reviewed with: Physician (Hospitalist)
[2025-05-08 15:00] VITALS: BP 133/72
--- NOTE | 2025-05-08 16:22 | CM ---
Family discussion with [facility] hospice plan for hospice transition saturday or saturday when DME in place and family ready per [facility] hospice. CM will continue to follow for discharge planning needs.
Plan; home with [facility] hospice.
[2025-05-08] MEDS: DOLOPHINE 20 MG PO (22:05)
[2025-05-08] MEDS: XANAX 1 MG PO (22:06)
[2025-05-08 23:47] VITALS: BP 130/66
[2025-05-09] MEDS: TYLENOL PO (02:05)
[2025-05-09] MEDS: ROXICODONE 20 MG PO ×4 (04:02→16:00)
[2025-05-09] MEDS: TYLENOL 500 MG PO ×2 (05:50→10:07)
[2025-05-09] MEDS: SYNTHROID 200 MCG PO (05:50)
[2025-05-09 07:00] VITALS: BP 122/61
[2025-05-09] MEDS: NEURONTIN 600 MG PO ×2 (07:56→16:00)
[2025-05-09] MEDS: ELIQUIS 5 MG PO ×2 (07:57→21:06)
[2025-05-09] MEDS: VALTREX 1000 MG PO (07:57)
[2025-05-09] MEDS: ZOFRAN 8 MG PO ×2 (07:57→21:06)
[2025-05-09] MEDS: PROTONIX 40 MG PO (07:57)
[2025-05-09] MEDS: DOLOPHINE 10 MG PO ×2 (07:58→15:00)
[2025-05-09] MEDS: DOLOPHINE 5 MG PO ×2 (07:58→15:00)
[2025-05-09] MEDS: DESENEX/MITRAZOL/ZEASORB 1 APPLIC TOPICAL ×2 (08:03→21:05)
--- NOTE | 2025-05-09 11:55 | W.PN.HOSP.TC ---
Today's Communication/Plan
-
Continue with pain medication
Await further hospice Recs
Assessment / Plan
Assessment / Plan
74 year old female with a PMHX significant for stage IV metastatic Thyroid cancer (follows with Dr. Hartman [facility], last chemo was ~14d ago, Cabozantinib, stopped due to side effects) with bone mets to spine, pelvis, and femur, chronic pain, peripheral
neuropathy, chronic bilateral lower extremity lymphedema, iatrogenic hypothyroidism, chronic shingles (active rash since 12/2024, now on chronic Valcyclovir) who was brought in by EMS for concerns of AMS.
# Toxic metabolic encephalopathy
Likely combination of sepsis, pain medication, delirium
Spouse has decided to transition patient to hospice. Continue with current pain medication with goal of comfort. Awaiting home medical equipment. Hospice at home once requirements completed. Hospice team following.
#Sepsis, likely secondary to UTI vs. Soft tissue infection (Shingles Rash)
- Febrile on admission to 103.1, leukopenic, tachycardic, with possible source
- lactate wnl on admission
- CXR wnl
- s/p 2L NS Bolus
- Blood cx (05/04), showing Pseudomonas, awaiting sensitivities
- repeat Blood Cx (05/05) pos GNB 12/06
- UA + for LE, Nitrites, bacteria -- reflex to Cx (05/04) -- growing pseudomonas
- DC antibiotics per family.
- repeat BCx 05/07 remains negative
-Ultrasound renal with hydronephrosis-probably chronic.
- ID following; appreciate recs
#Acute on chronic Anemia
- transfused x1 unit
#Stage IV Metastatic Thyroid cancer
#Bone Mets
#Chronic Cancer pain
#Chronic Opioid use with dependence
- c/w home dose Oxycodone 20mg q4
- c/w home bowel regimen for opioid induced constipation
- back on home methadone (235 MME/d)
- Pain controlled on 1mg IV Dilaudid for Mod pain; 1.5mg IV Dilaudid for severe pain-not required extensive IV medication.
#Chronic Shingles rash
- active shingles rash since December 2024
- unable to achieve full remission with Valacyclovir 10d course
- has been on daily Valacyclovir x3 weeks -- will continue
#H/o PE
#Hypercoagulable State (Active Stage IV Cancer)
- Continue Eliquis
#Peripheral Neuropathy
- c/w gabapentin 600mg TID
#Iatrogenic Hypothyroidism
#s/p thyroidectomy
- c/w home dose levothyroxine 200mcg
#Anxiety
- c/w home Xanax 1mg prn/Cymbalta 60mg
#Right Heel DTI - POA, c/w wound care
GI Ppx - Pantoprazole 40mg qd
DVT PPx - pt on Eliquis
Code Status - DNR
Anticipated Discharge: 24 - 48 hours
Subjective/Interval History
-
Date of Service: May 09, 2025
Pain is controlled
Patient currently comfortable. Requiring oxygen.
Objective Data
-
Vital Signs:
Vital Signs
Temp Pulse Resp BP Pulse Ox
97.7 F 84 18 122/61 92
05/09/25 07:00 05/09/25 07:00 05/09/25 07:00 05/09/25 07:00 05/09/25 07:00
I&O
05/08/25 05/09/25 05/10/25
06:59 06:59 06:59
Intake Total 420 / 420 480 / 480
Output Total 2500 / 2500 600 / 600 700 / 700
Balance -2080 / -2080 -120 / -120 -700 / -700
[2025-05-09] MEDS: CYMBALTA DELAYED RELEASE 60 MG PO (12:05)
--- NOTE | 2025-05-09 12:10 | HOSPNOTE ---
Hospice continues to follow. Reviewed records, patient still remains appropriate at this time for home hospice. Spouse is making arrangements and plan is to d/c patient to home with Hospice on 05/11/25. Hospice will continue to follow. Will touch
base with spouse on 05/10 to confirm everything is in order for d/c on 05/11. CM and Attending aware and in agreement.
[2025-05-09] MEDS: NSS IV (12:18)
[2025-05-09 15:00] VITALS: BP 134/70
[2025-05-09] MEDS: VALTREX PO ×2 (21:06→21:14)
[2025-05-09] MEDS: ROXICODONE PO (21:06)
[2025-05-09] MEDS: DOLOPHINE PO (21:14)
[2025-05-09] MEDS: NEURONTIN PO (21:15)
[2025-05-09] MEDS: XANAX PO (21:15)
[2025-05-09 23:00] VITALS: BP 119/64
[2025-05-10] MEDS: ROXICODONE 20 MG PO ×6 (00:06→20:06)
[2025-05-10 04:50] VITALS: BP 123/67
[2025-05-10] MEDS: SYNTHROID 200 MCG PO (05:03)
[2025-05-10 07:07] VITALS: BP 111/60
[2025-05-10] MEDS: NEURONTIN 600 MG PO ×2 (07:29→15:57)
[2025-05-10] MEDS: ELIQUIS 5 MG PO ×2 (07:30→20:05)
[2025-05-10] MEDS: ZOFRAN 8 MG PO ×2 (07:30→20:05)
[2025-05-10] MEDS: DOLOPHINE 5 MG PO ×2 (07:30→14:32)
[2025-05-10] MEDS: VALTREX 1000 MG PO (07:30)
[2025-05-10] MEDS: DOLOPHINE 10 MG PO ×2 (07:31→14:32)
[2025-05-10] MEDS: DESENEX/MITRAZOL/ZEASORB 1 APPLIC TOPICAL ×2 (07:32→20:07)
--- NOTE | 2025-05-10 11:24 | HOSPNOTE ---
Hospice continues to follow. Spoke to spouse this morning. He is in agreement and able to accept patient home tomorrow at 2 pm. CM and Attending updated. Requested transport be arranged for 1-130 pm tomorrow 05/11. Once home, patient will be signed
onto hospice services.
[2025-05-10] MEDS: CYMBALTA DELAYED RELEASE 60 MG PO (12:12)
--- NOTE | 2025-05-10 14:13 | W.PN.HOSP.TC ---
Addendum entered and electronically signed by Edwardo Sanabria MD 05/10/25 22:02:
Attending Addendum-I saw and evaluated the patient. I reviewed the resident�s note and agree with findings and plan as documented in the resident�s note. Sub: appears groggy. states pain is controlled. Full 12 point ROS reviewed and negative
except as documented-limited by MS Exam- vitals reviewed in EMR GEN-NAD heart RRR no MRG lungs CTA B/L Abd soft NT ND pos BS Ext 2+ pitting edema b/l Neuro AAO x 2 Back skin wound CDI healing no signs of crusting
Plan:
# Sepsis secondary to pseudomonas UTI with bacteremia
-pos blood cx x 3-pseudomonas
-repeat blood cx 7/4-NGTD
-urine cx- pos for pseudomonas sensi resulted
-decision made to DC abx- hospice appropriate
# DTI right heel POA
- wound care
# Opioid Use with opioid dependence
- cont aggressive pain med regimen oxy q 4 with prn IV Dilaudid
- PDMP reviewed
- cont home methadone dose
- monitor resp status closely
# Bicytopenia (leukopenia, anemia)
# Acute on chronic anemia
- due to malignancy
- no signs of acute blood loss
- transfused 1 u PRBC /
# Met Thyroid Ca
- follows at [facility]
- poor prognosis recent chemo attempt 4 weeks ago and could not tolerate so stopped
- mets to bone
- supportive care
- cont levothyroxine
- DC home on hospice
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
-cont valacyclovir
-wound care
# H/O PE- cont eliquis
# Peripheral Neuropathy- cont gabapentin
# Depression/Anxiety - reviewed PDMP cont xanax and duloxetine
# HTN- cont coreg
CODE- DNR verified with POA
DVTp-eliquis
Dispo-DC home on hospice in am
Time spent coordinating care, review of plan of care with resident, personally reviewed records in EMR, med rec, consults, notes, labs, radiology, d/w nursing and CM� 51 mins
Original Note:
Today's Communication/Plan
-
C/w comfort care measures, transport for tomorrow afternoon.
Assessment / Plan
Assessment / Plan
74 year old female with a PMHX significant for stage IV metastatic Thyroid cancer (follows with Dr. Hartman [facility], last chemo was ~14d ago, Cabozantinib, stopped due to side effects) with bone mets to spine, pelvis, and femur, chronic pain, peripheral
neuropathy, chronic bilateral lower extremity lymphedema, iatrogenic hypothyroidism, chronic shingles (active rash since 12/2024, now on chronic Valcyclovir) who was brought in by EMS for concerns of AMS.
Spouse has decided to transition patient to hospice. Continue with current pain medication with goal of comfort. Keep Galaviz for now. [facility] hospice planning. Transport set for tomorrow at 1:00 -1:30pm.
#Toxic metabolic encephalopathy
Likely combination of sepsis, pain medication, delirium
#Sepsis, likely secondary to UTI vs. Soft tissue infection (Shingles Rash)
- Febrile on admission to 103.1, leukopenic, tachycardic, with possible source
- lactate wnl on admission
- CXR wnl
- s/p 2L NS Bolus
- Blood cx (05/04), showing Pseudomonas, awaiting sensitivities
- repeat Blood Cx (05/05) pos GNB 12/06
- UA + for LE, Nitrites, bacteria -- reflex to Cx (05/04) -- growing pseudomonas
- DC antibiotics per family.
- repeat BCx 05/07 remains negative
-Ultrasound renal with hydronephrosis-probably chronic.
#Acute on chronic Anemia
- transfused x1 unit
#Stage IV Metastatic Thyroid cancer
#Bone Mets
#Chronic Cancer pain
#Chronic Opioid use with dependence
- c/w home dose Oxycodone 20mg q4
- c/w home bowel regimen for opioid induced constipation
- back on home methadone (235 MME/d)
- Pain controlled on 1mg IV Dilaudid for Mod pain; 1.5mg IV Dilaudid for severe pain-not required extensive IV medication.
#Chronic Shingles rash
- active shingles rash since December 2024
- unable to achieve full remission with Valacyclovir 10d course
- has been on daily Valacyclovir x3 weeks -- will continue
#H/o PE
#Hypercoagulable State (Active Stage IV Cancer)
- Continue Eliquis
#Peripheral Neuropathy
- c/w gabapentin 600mg TID
#Iatrogenic Hypothyroidism
#s/p thyroidectomy
- c/w home dose levothyroxine 200mcg
#Anxiety
- c/w home Xanax 1mg prn/Cymbalta 60mg
#Right Heel DTI - POA, c/w wound care
GI Ppx - Pantoprazole 40mg qd
DVT PPx - pt on Eliquis
Code Status - DNR
Anticipated Discharge: Within 24 hours
Subjective/Interval History
-
Date of Service: May 10, 2025
Stable this morning. pain controlled. Arousable and communicative.
Objective Data
-
Vital Signs:
Vital Signs
Temp Pulse Resp BP Pulse Ox
98.4 F 98 14 111/60 99
05/10/25 07:07 05/10/25 07:07 05/10/25 07:07 05/10/25 07:07 05/10/25 07:07
I&O
05/09/25 05/10/25 05/11/25
06:59 06:59 06:59
Intake Total 480 / 480 840 / 840 120 / 120
Output Total 600 / 600 1950 / 1950
Balance -120 / -120 -1110 / -1110 120 / 120
Review of Systems
-
History Source: Patient
All other systems: Reviewed and negative
Constitutional: Reports No Symptoms
EENT: Reports No Symptoms Reported
Respiratory: Reports No Symptoms
Cardiac: Reports No Symptoms
Abdomen/GI: Reports No Symptoms
Genitourinary: Reports No Symptoms
Musculoskeletal: Reports No Symptoms
Skin: Reports No Symptoms
Neuro: Reports No Symptoms
Endocrine: Reports No Symptoms
Hematologic / Lymphatic: Reports No Symptoms
Allergy / Immunology: Reports No Symptoms
Physical Exam
-
General: Well Developed, Well Nourished and Appears Chronically Ill
HEENT: Normocephalic, Atraumatic, Moist Mucous Membranes, Anicteric, [place] Conjunctivae, PERRLA, Nose Appears Normal, Ears Appear Normal and Oxygen
Respiratory: Clear to Auscultation and Non Labored Respirations; Negative Wheezes, Rales or Rhonchi
Cardiac: Regular Rhythm and S1/S2; Negative Murmur or Rub
Breast: Deferred by me
GI: Nontender, Nondistended, Normal Bowel Sounds and Flat
Rectal: Deferred by Provider
Genito-urinary: Clear Urine and Galaviz
Musculoskeletal: No Clubbing, No Cyanosis, Edema, Right Upper Extrem, Edema, Left Upper Extrem, Edema, Right Lower Extrem and Edema, Left Lower Extrem
Skin: Warm, Dry and IV Access / Catheter Site
Neuro: Awake and Alert
[2025-05-10 16:01] VITALS: BP 124/66
[2025-05-10 20:00] VITALS: BP 126/67
[2025-05-10] MEDS: VALTREX PO ×2 (20:05→20:22)
[2025-05-10] MEDS: DOLOPHINE PO (22:11)
[2025-05-10] MEDS: NEURONTIN PO (22:11)
[2025-05-10] MEDS: XANAX PO (22:11)
[2025-05-10 22:48] VITALS: BP 104/52
[2025-05-10] MEDS: TYLENOL/FEVERALL 650 MG RECTAL (23:00)
--- NOTE | 2025-05-10 23:00 | PTCARENOTE ---
Addendum entered by Yolanda Quiros RN 05/11/25 05:05:
Holding PO medications while patient remains drowsy.
Original Note:
Pt very drowsy and having a hard time taking pills. Pt pocketing pills, spitting out water, and coughing with oral intake. Pt getting increasingly more confused and drowsy. Axillary temp of 100.2. KEYSHA Monteiro notified. Rectal tylenol ordered
for fever. Refer to MAR. This RN asked to check patient glucose due to patient having poor PO intake throughout day. Blood sugar noted to be 79. Plan of care ongoing.
[2025-05-10 23:11] LABS: Glucose - Point of Care 79 mg/dl (70-99)
[2025-05-10] MEDS: ROXICODONE PO (23:33)
[2025-05-11] MEDS: ROXICODONE PO (05:05)
[2025-05-11] MEDS: SYNTHROID PO (05:05)
--- NOTE | 2025-05-11 07:48 | W.PN.HOSP.TC ---
Addendum entered and electronically signed by Edwardo Sanabria MD 05/12/25 15:51:
Attending Addendum-I saw and evaluated the patient. I reviewed the resident�s note and agree with findings and plan as documented in the resident�s note. Sub: appears groggy. states pain is controlled. 'I wanna go home' Full 12 point ROS reviewed
and negative except as documented-limited by MS Exam- vitals reviewed in EMR GEN-NAD heart RRR no MRG lungs CTA B/L Abd soft NT ND pos BS Ext 2+ pitting edema b/l Neuro AAO x 2 Back skin wound CDI healing no signs of crusting
Plan:
# Sepsis secondary to pseudomonas UTI with bacteremia
-pos blood cx x 3-pseudomonas
-repeat blood cx 7/4-NGTD
-urine cx- pos for pseudomonas sensi resulted
-decision made to DC abx- hospice appropriate
# DTI right heel POA
- wound care
# Opioid Use with opioid dependence
- cont aggressive pain med regimen oxy q 4 with prn IV Dilaudid
- PDMP reviewed
- cont home methadone dose
- monitor resp status closely
# Bicytopenia (leukopenia, anemia)
# Acute on chronic anemia
- due to malignancy
- no signs of acute blood loss
- transfused 1 u PRBC /
# Met Thyroid Ca
- follows at [facility]
- poor prognosis recent chemo attempt 4 weeks ago and could not tolerate so stopped
- mets to bone
- supportive care
- cont levothyroxine
- DC home on hospice
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
-cont valacyclovir
-wound care
# H/O PE- cont eliquis
# Peripheral Neuropathy- cont gabapentin
# Depression/Anxiety - reviewed PDMP cont xanax and duloxetine
# HTN- cont coreg
CODE- DNR verified with POA
DVTp-eliquis
Dispo-DC home on hospice
Time spent coordinating care, DC planning, review of DC plan of care with resident, transition of care, review of records, med rec/scripts sent electronically, consults, notes, d/w consultants, nursing, family, and CM� 31 mins >50% of this time was
devoted to counseling and coordination of care
Original Note:
Today's Communication/Plan
-
D/c home with hospice
Assessment / Plan
Assessment / Plan
74 year old female with a PMHX significant for stage IV metastatic Thyroid cancer (follows with Dr. Hartman [facility], last chemo was ~14d ago, Cabozantinib, stopped due to side effects) with bone mets to spine, pelvis, and femur, chronic pain, peripheral
neuropathy, chronic bilateral lower extremity lymphedema, iatrogenic hypothyroidism, chronic shingles (active rash since 12/2024, now on chronic Valcyclovir) who was brought in by EMS for concerns of AMS.
Spouse has decided to transition patient to hospice. Continue with current pain medication with goal of comfort. Keep Galaviz for now. [facility] hospice planning. Transport set for today at 1:00pm. OOH DNR signed.
#Toxic metabolic encephalopathy
Likely combination of sepsis, pain medication, delirium
#Sepsis, likely secondary to UTI vs. Soft tissue infection (Shingles Rash)
- Febrile on admission to 103.1, leukopenic, tachycardic, with possible source
- lactate wnl on admission
- CXR wnl
- s/p 2L NS Bolus
- Blood cx (05/04), showing Pseudomonas, awaiting sensitivities
- repeat Blood Cx (05/05) pos GNB 12/06
- UA + for LE, Nitrites, bacteria -- reflex to Cx (05/04) -- growing pseudomonas
- DC antibiotics per family.
- repeat BCx 05/07 remains negative
-Ultrasound renal with hydronephrosis-probably chronic.
#Acute on chronic Anemia
- transfused x1 unit
#Stage IV Metastatic Thyroid cancer
#Bone Mets
#Chronic Cancer pain
#Chronic Opioid use with dependence
- c/w home dose Oxycodone 20mg q4
- c/w home bowel regimen for opioid induced constipation
- back on home methadone (235 MME/d)
- Pain controlled on 1mg IV Dilaudid for Mod pain; 1.5mg IV Dilaudid for severe pain-not required extensive IV medication.
#Chronic Shingles rash
- active shingles rash since December 2024
- unable to achieve full remission with Valacyclovir 10d course
- has been on daily Valacyclovir x3 weeks -- will continue
#H/o PE
#Hypercoagulable State (Active Stage IV Cancer)
- Continue Eliquis
#Peripheral Neuropathy
- c/w gabapentin 600mg TID
#Iatrogenic Hypothyroidism
#s/p thyroidectomy
- c/w home dose levothyroxine 200mcg
#Anxiety
- c/w home Xanax 1mg prn/Cymbalta 60mg
#Right Heel DTI - POA, c/w wound care
GI Ppx - Pantoprazole 40mg qd
DVT PPx - pt on Eliquis
Code Status - DNR
Anticipated Discharge: Today
Subjective/Interval History
-
Date of Service: May 11, 2025
Happy to be going home. No overnight events, no acute complaints.
Objective Data
-
Vital Signs:
Vital Signs
Temp Pulse Resp BP Pulse Ox
98.6 F 106 14 104/52 99
05/11/25 01:30 05/10/25 22:48 05/10/25 22:48 05/10/25 22:48 05/10/25 22:48
I&O
05/10/25 05/11/25 05/12/25
06:59 06:59 06:59
Intake Total 840 / 840 360 / 360
Output Total 1950 / 1950 975 / 975
Balance -1110 / -1110 -615 / -615
Review of Systems
-
History Source: Patient
All other systems: Reviewed and negative
Constitutional: Reports No Symptoms
EENT: Reports No Symptoms Reported
Respiratory: Reports No Symptoms
Cardiac: Reports No Symptoms
Abdomen/GI: Reports No Symptoms
Genitourinary: Reports No Symptoms
Musculoskeletal: Reports No Symptoms
Skin: Reports No Symptoms
Neuro: Reports No Symptoms
Endocrine: Reports No Symptoms
Hematologic / Lymphatic: Reports No Symptoms
Physical Exam
-
General: No Apparent Distress, Comfortable and Appears Chronically Ill
HEENT: Normocephalic, Atraumatic, Moist Mucous Membranes, Anicteric, [place] Conjunctivae, PERRLA, Nose Appears Normal and Ears Appear Normal
Respiratory: Crackles and Non Labored Respirations; Negative Wheezes
Cardiac: Regular Rhythm and S1/S2; Negative Murmur
Breast: Deferred by me
GI: Soft, Nontender and Nondistended
Genito-urinary: No Costovertebral Tender, Clear Urine and Galaviz
Musculoskeletal: No Clubbing, No Cyanosis, Edema, Right Upper Extrem, Edema, Left Upper Extrem, Edema, Right Lower Extrem and Edema, Left Lower Extrem
Skin: Warm, Dry and IV Access / Catheter Site
Neuro: Awake and Alert
Psych: Calm
[2025-05-11 07:50] VITALS: BP 116/56
[2025-05-11] MEDS: DESENEX/MITRAZOL/ZEASORB 1 APPLIC TOPICAL (08:44)
[2025-05-11] MEDS: VALTREX 1000 MG PO (08:45)
[2025-05-11] MEDS: ZOFRAN 8 MG PO (08:45)
[2025-05-11] MEDS: DOLOPHINE 5 MG PO (08:46)
[2025-05-11] MEDS: ROXICODONE 20 MG PO ×2 (08:46→11:32)
[2025-05-11] MEDS: DOLOPHINE 10 MG PO (08:46)
[2025-05-11] MEDS: SYNTHROID 200 MCG PO (08:46)
[2025-05-11] MEDS: ELIQUIS 5 MG PO (08:46)
[2025-05-11] MEDS: NEURONTIN 600 MG PO (08:47)
--- NOTE | 2025-05-11 11:28 | CM ---
Pt for discharge to hospice care at home today with [facility].
Ambulance transport arranged for 1:00-1:30 medicinal plant picker today to home.
IMM reviewed with pt's daughter via telephone, she is in agreement with the discharge and provided verbal consent to IMM.
[2025-05-11] MEDS: CYMBALTA DELAYED RELEASE 60 MG PO (11:33)
[2025-05-11] MEDS: DILAUDID 1 MG IV (13:17)
--- NOTE | 2025-05-11 17:54 | W.DCSUMMARY ---
Addendum entered and electronically signed by Edwardo Sanabria MD 05/12/25 15:52:
Read, Reviewed and Agree
Nayan Sanabria MD
Original Note:
Documented by User: Pratik Orta MD, Resident 05/11/25 18:16
Discharge Summary
Discharge Data
Date of Admission: 05/04/25
Date of Discharge: 05/11/25
Total time spent discharging patient (in min): >30m
-
Pending Results: No
Hospital Course
Discharging Physician : Dr. Edwardo Sanabria, Dr. Pratik Orta
Disposition : Home with Hospice ([facility])
Primary care physician : Unknown
Principal Discharge diagnosis : Toxic Metabolic Encephalopathy Sepsis, Complicated UTI, Acute Urinary Retention
Chronic Discharge diagnosis : Stage IV Metastatic Thyroid cancer with Bone Mets, Chronic Cancer Pain, Chronic Opioid Dependence, Chronic Shingles Rash, Hypercoagulable state, Peripheral Neuropathy, Iatrogenic Hypothyroidism, Anxiety
Hospital Course :
Kieran Monreal is a 74 year old female with a PMHX significant for stage IV metastatic Thyroid cancer with bone mets to spine, pelvis, and femur, chronic pain, peripheral neuropathy, chronic bilateral lower extremity lymphedema, iatrogenic hypothyroidism,
chronic shingles who was brought in by EMS for concerns of AMS.
In ED she was found to be tachycardic with leukopenic and febrile. Blood cultures were drawn, IV Cefepime was given and she was given IVF bolus per sepsis criteria. Urine culture was also drawn. CXR was done which was wnl. She was admitted for
further workup and management of sepsis with toxic metabolic encephalopathy. There was a hgb drop to 6.7 s/p fluids with no signs of active bleeding for which she was transfused 1U pRBCs. Abx were initially de-escalated to Ceftriaxone, but returned
to Cefepime when Urine and Blood cultures came back positive for pseudomonas. She remained on IV abx. Pain medication was resumed at home dose with IV dilaudid added as needed. Repeat Blood cultures from 05/07/2025 showed no growth. Remaining home
medication for chronic conditions listed above were continued without changes. There was a reported history of hydronephrosis, so a renal US was ordered (results below). She required straight cath 3 times for acute urinary retention and a Galaviz was
placed. Eventually, after careful discussion with family and hospice care nurses, the decision was made to transition patient to home hospice care. Abx were stopped at family's request and she was kept on pain medication and comfort care measures
until DME was delivered to home and hospice care was coordinated. She was discharged home with transport on hospital day 7 for continuing end of life care.
Important imaging findings :
CR Chest Portable - 1 View (05/04/2025):
IMPRESSION:
Clear lungs.
US Renal With Bladder (05/07/2025):
IMPRESSION:
Findings concerning for severe right-sided hydronephrosis as prior CT in 2022 did not demonstrate parapelvic cysts. Mild left-sided hydronephrosis which improved post void. Consider further evaluation with dedicated CT abdomen pelvis.
Debris within the urinary bladder which can be seen with cystitis.
Procedure findings :
None.
Discharge Plan
-
Patient Disposition: Home with Hospice
Discharge Diagnosis/Procedures: Sepsis, Complicated Cystitis
Condition: Fair
Diet: No restrictions
Activity: As tolerated
Driving Restrictions: As prior to admission
Bathing Restrictions: None
Other Services: Hospice
Activity Restrictions/Additional Instructions:
Wound Care Instructions Right Heel DTI- No-sting barrier and silicone border foam. Change bandage Q 48 hours and assess daily.
Low Back Shingles Rash- Clean gently with saline or soap and water. Cover with silicone border foam and change daily and PRN.
Air mattress
Turning Schedule
Keep heels off-loaded with pillow or air cushion under calves
Barrier ointment to buttocks with incontinence care
Referrals:
UNKNOWN - PT NOT,INTERVIEWE [Family Provider]
Prescriptions:
Continued
gabapentin 600 mg Tablet
600 mg PO TID
ondansetron HCl 8 mg Tablet
8 mg PO Q12H
methadone 10 mg Tablet
15 mg PO BID
methadone 10 mg Tablet
20 mg PO HS
acetaminophen 500 mg Tablet
500 mg PO Q4H
carvedilol 3.125 mg Tablet
3.125 mg PO BID
alprazolam [Xanax] 0.5 mg Tablet
1 mg PO HS
pantoprazole 40 mg Tablet,Delayed Release (Dr/Ec)
40 mg PO DAILY
cholecalciferol (vitamin D3) 10 mcg (400 unit) Capsule
10 mcg PO DAILY
oxycodone 20 mg Tablet
20 mg PO Q4H
Eliquis 5 mg Tablet
5 mg PO BID
nitrofurantoin macrocrystal 50 mg Capsule
50 mg PO DAILY
valacyclovir [Valtrex] 1 gram Tablet
1,000 mg PO BID
magnesium hydroxide [Milk of Magnesia] 400 mg/5 mL Suspension
15 mg PO DAILYPRN PRN (Reason: constipation)
calcium carbonate 500 mg calcium (1,250 mg) Tablet
500 mg PO DAILY
levothyroxine [Synthroid] 200 mcg Tablet
200 mcg PO DAILY
duloxetine 60 mg Capsule,Delayed Release(Dr/Ec)
60 mg PO DAILY@1200
Discharge Orders:
Discharge Patient (As Directed); Ordered 05/11/25
Ordered By: Pratik Orta
Discharge Date and Time
Discharge Date/Time: 05/11/25 13:43
Print Language: MALTESE

Documented by User: Edwardo Sanabria MD 05/12/25 15:50
Discharge Summary
Discharge Data
Date of Admission: 05/04/25
Date of Discharge: 05/12/25
Discharge Plan
-
Patient Disposition: Home with Hospice
Discharge Diagnosis/Procedures: Sepsis, Complicated Cystitis
Condition: Fair
Diet: No restrictions
Activity: As tolerated
Driving Restrictions: As prior to admission
Bathing Restrictions: None
Other Services: Hospice
Activity Restrictions/Additional Instructions:
Wound Care Instructions Right Heel DTI- No-sting barrier and silicone border foam. Change bandage Q 48 hours and assess daily.
Low Back Shingles Rash- Clean gently with saline or soap and water. Cover with silicone border foam and change daily and PRN.
Air mattress
Turning Schedule
Keep heels off-loaded with pillow or air cushion under calves
Barrier ointment to buttocks with incontinence care
Referrals:
UNKNOWN - PT NOT,INTERVIEWE [Family Provider]
Prescriptions:
Continued
gabapentin 600 mg Tablet
600 mg PO TID
ondansetron HCl 8 mg Tablet
8 mg PO Q12H
methadone 10 mg Tablet
15 mg PO BID
methadone 10 mg Tablet
20 mg PO HS
acetaminophen 500 mg Tablet
500 mg PO Q4H
carvedilol 3.125 mg Tablet
3.125 mg PO BID
alprazolam [Xanax] 0.5 mg Tablet
1 mg PO HS
pantoprazole 40 mg Tablet,Delayed Release (Dr/Ec)
40 mg PO DAILY
cholecalciferol (vitamin D3) 10 mcg (400 unit) Capsule
10 mcg PO DAILY
oxycodone 20 mg Tablet
20 mg PO Q4H
Eliquis 5 mg Tablet
5 mg PO BID
nitrofurantoin macrocrystal 50 mg Capsule
50 mg PO DAILY
valacyclovir [Valtrex] 1 gram Tablet
1,000 mg PO BID
magnesium hydroxide [Milk of Magnesia] 400 mg/5 mL Suspension
15 mg PO DAILYPRN PRN (Reason: constipation)
calcium carbonate 500 mg calcium (1,250 mg) Tablet
500 mg PO DAILY
levothyroxine [Synthroid] 200 mcg Tablet
200 mcg PO DAILY
duloxetine 60 mg Capsule,Delayed Release(Dr/Ec)
60 mg PO DAILY@1200
Discharge Orders:
Discharge Patient (As Directed); Ordered 05/11/25
Ordered By: Pratik Orta
Discharge Date and Time
Discharge Date/Time: 05/11/25 13:43
Print Language: MALTESE
== END 2025-05-11 13:43 | disposition hospice, home (50) | DRG 871 ==
LOC: 3 WEST ACU 14:27
PROVIDERS: ADMITTING PHYSICIAN Family Medicine; EMERGENCY PHYSICIAN Emergency Medicine; OTHER PHYSICIAN Internal Medicine Infectious Disease
PROC: 30233N1 Transfusion of Nonautologous Red Blood Cells into Peripheral Vein, Percutaneous Approach (ICD-10-PCS; 2025-05-05)
DX: A41.9 Sepsis, unspecified organism (principal); G92.8 Other toxic encephalopathy; N13.6 Pyonephrosis; C79.51 Secondary malignant neoplasm of bone; F11.20 Opioid dependence, uncomplicated; Z66 Do not resuscitate; G89.3 Neoplasm related pain (acute) (chronic); D63.8 Anemia in other chronic diseases classified elsewhere; D72.819 Decreased white blood cell count, unspecified; C73 Malignant neoplasm of thyroid gland; T40.2X5A Adverse effect of other opioids, initial encounter; K59.03 Drug induced constipation; F41.9 Anxiety disorder, unspecified; I10 Essential (primary) hypertension; Z51.5 Encounter for palliative care
CPT/HCPCS: 71045; 76770; 80048; 80053; 81003; 81015; 82140; 82962; 83605; 83615; 83735; 85014; 85018; 85025; 85045; 86850; 86900; 86901; 86920; 87040; 87070; 87086; 87088; 87154; 87186; 87205; 87798; 93005; 96361; 96374; 99285; P9016